=== PATIENT | male | born 1965 | race Caucasian/White ===

== ENCOUNTER 2022-09-11 18:56 | Emergency (ER) | payer SELFPAY ==
[2022-09-11 19:07] VITALS: BP 127/72; PULSE 89; RESP 16; TEMP 37.9; O2SAT 99
--- NOTE | 2022-09-11 19:40 | ED.ABDPAIN ---
HPI - Abdominal Pain General Chief Complaint: Abdominal Pain Stated Complaint: colitis flare up Source: patient Mode of arrival: ambulatory Limitations: no limitations History of Present Illness HPI narrative: Patient presents for evaluation of abdominal pain. Symptom onset today while eating some fast food. Pain is been constant with interval improvement and worsening. Pain is generalized, rated 9/10 in severity. He has a history of colitis and this feels similar. He had a bowel movement earlier today which was solid and small. He had mucus in the stool but no blood. No fever or chills. He has experienced some nausea without vomiting. No history of abdominal surgeries. He indicates he was diagnosed with colitis about 5 years ago. He has had some intermittent flares since that time. He usually consumes alcohol few times per week, 2-3 beers at a time. The past 4 days he has consumed more ETOH than normal. No hx of colonoscopy. Related Data Allergies Allergy/AdvReac Type Severity Reaction Status Date / Time MEPERIDINE HCL Allergy Intermediate VOMITING Uncoded 08/09/16 13:09 Review of Systems Review of Systems: CONSTITUTIONAL: Denies fever, chills, or sweats. EYES: Denies visual changes, redness, or discharge. ENT: Denies rhinorrhea, congestion, sore throat, or otalgia. CARDIOVASCULAR: Denies chest pain, palpitations, or edema. RESPIRATORY: Denies cough or dyspnea. GASTROINTESTINAL: Reports abdominal pain, nausea, vomiting and mucous in the stool. Denies blood in the stool. GENITOURINARY: Denies dysuria or hematuria. SKIN: Denies rash or itching. MUSCULOSKELETAL: Denies back pain, joint pain, or myalgia. NEUROLOGIC: Denies headache, numbness, dizziness, or weakness. PSYCHIATRIC: Denies anxiety or depression. [facility] Past Medical History Medical History Colitis Surgical History Surgical History No pertinent past surgical history Family History Family History Mother Family history non-contributory Social History Social History Alcohol intake: current Alcohol use details: 2-3 beers a few days per week Substance use: current Substance use type: marijuana Living arrangements: alone Gender identity (if verbalized by the patient): Male Sexual Orientation (if Verbalized by the Patient): Straight or Heterosexual Spiritual care concerns: No Exam Narrative: GENERAL: Well-appearing, well-nourished, and in no acute distress. HEAD: Normocephalic, atraumatic. EYES: PERRLA and EOMI. ENT: Nares clear, no rhinorrhea or epistaxis. Mucous membranes moist. Oropharynx without tonsillar hypertrophy exudate or other lesions. Bilateral TMs pearly marie nonbulging NECK: Supple. No adenopathy or masses. No carotid bruits or JVD CHEST: Clear to auscultation. No respiratory distress. No wheezes rales or rhonchi HEART: Regular rate and rhythm. No murmur heard. Normal peripheral pulses. ABDOMEN: Soft, diffuse abdominal tenderness without rebound or guarding. EXTREMITIES: Normal range of motion. No edema. SKIN: Warm, dry, no rash. NEURO: No focal deficits. Alert and oriented x3. PSYCH: Normal mood and affect. Course Course Emergency Course: This is a 57-year-old male who presented for evaluation of abdominal pain that is consistent with his previous bouts of colitis. I recommended he go to the emergency department for further evaluation including labs and CT imaging. He declined. He indicates he does not have insurance at the present time is concerned about finances. I discussed options related to this and he adamantly declined go to the emergency department. I advised that he follow a clear liquid diet and not consume alcohol. We can treat him for colitis with Flag
== END 2022-09-11 19:46 | disposition left against medical advice (07) ==
PROVIDERS: Emergency Provider Nurse Practitioner
DX: R10.84 Generalized abdominal pain (principal); F12.90 Cannabis use, unspecified, uncomplicated
CPT/HCPCS: 99203; G0463

== ENCOUNTER 2022-09-12 13:51 | Inpatient (IN) | payer SELFPAY ==
--- NOTE | ~2022-09-12 | XR_ITS ---
EXAMINATION: XR abdomen/kub 1V INDICATION: Acute onset abdominal pain TECHNIQUE: Supine views of the abdomen were obtained on 2 radiographs. COMPARISON: 09/14/2022 FINDINGS: There are no dilated loops of bowel. The bowel gas pattern is normal. There is moderate lum bar spondylosis. No free intraperitoneal gas is identified. IMPRESSION: 1. No radiographic correlate for the patient's symptoms. Reviewed, dictated and finalized at location B.
--- NOTE | ~2022-09-12 | XR_ITS ---
EXAMINATION: XR abdomen/kub 1V DATE: 09/14/2022 12:36 INDICATION: Sigmoid colon perforation. Abdominal pain. TECHNIQUE: A supine view of the abdomen on 2 radiographs was obtained. COMPARISON: CT abdomen and pelvis 09/12/2022 FINDINGS: There are no dilated loops of bowel. There is a paucity of stool in the colon. IMPRESSION: 1. Normal bowel gas pattern. Reviewed, dictated and finalized at location A.
--- NOTE | ~2022-09-12 | CT_ITS ---
EXAMINATION: CT abdomen pelvis wo con DATE: 09/19/2022 12:34 INDICATION: Perisigmoid abscess. TECHNIQUE: Computed tomography (CT) of the abdomen and pelvis was performed without intravenous contr ast. Automated exposure control and iterative reconstruction technique were employed. The dose-length product was 349.35 mGy-cm. COMPARISON: CT abdomen and pelvis 09/14/2022, 09/12/22, 08/09/16 FINDINGS: The visualized portions of the lung bases demonstrate mild atelectasis. There are small ple ural effusions. The heart size is normal. No pericardial effusion. There is a small sliding hiatal he rnia. The liver, spleen, gallbladder, pancreas, adrenal glands, and kidneys are normal. Aortic athero sclerosis is noted. The prostate is mildly enlarged. There are bilateral inguinal hernias containing fat. There are scattered diverticula in the colon. There is wall thickening of the sigmoid colon with adjacent fat stranding. There is free intraperitoneal gas adjacent to the sigmoid colon and scattere d in the peritoneum including in the anterior peritoneum and under the diaphragm. There is a percutan eous drain adjacent to the sigmoid colon without residual drainable fluid. The appendiceal diameter i s 11 mm. The appendix sits near the percutaneous drain in an area involved by the perisigmoid inflamm ation. There is trace pelvic ascites. There are no pathologically enlarged lymph nodes. There is andrei re lower lumbar spondylosis. IMPRESSION: 1. Acute sigmoid diverticulitis with perforation and percutaneous drain in expected position. No resi dual drainable abscess. 2. Acute appendicitis. Note that the appendix is surrounded by the perisigmoid inflammation. Reviewed, dictated and finalized at location A. IMPRESSION: 1. Acute sigmoid diverticulitis with perforation and percutaneous drain in expe cted position. No residual drainable abscess. 2. Acute appendicitis. Note that the appendix is surrounded by the perisigmoid inflammation.
--- NOTE | ~2022-09-12 | CT_ITS ---
EXAMINATION: CT abdomen pelvis w con DATE: 09/12/2022 14:47 INDICATION: lower ab pain TECHNIQUE: Computed tomography (CT) of the abdomen and pelvis was performed with 100 mL Omnipaque-350 intravenous contrast. Automated exposure control and iterative reconstruction technique were employe d. The dose-length product was 295.62 mGy-cm. COMPARISON: 08/09/2016. FINDINGS: Lower thorax: Unremarkable Liver: Diffuse fatty infiltration. Biliary/Gallbladder: Gallbladder is normal. No bile duct dilation. Pancreas: No mass or duct dilation. Spleen: Normal. Adrenals:No mass. Kidneys: No mass, stone, or hydronephrosis. GI tract: Small hiatal hernia. Mild distal esophageal and gastric wall edema. No small or large bowel dilation. Fairly long segment soft tissue density wall thickening in the sigmoid with a focal area o f pericolic inflammatory change and punctate extraluminal gas bubbles. No focal fluid collection is d efinitively identified. Borderline dilated appendix, without surrounding inflammatory change and stab le size since the prior examination. Scattered colonic diverticuli. Small and large bowel submucosal fatty infiltration. Mesentery/Peritoneum: No ascites, mass, or free air. Retroperitoneum: No mass. Atherosclerotic abdominal aortic and/or arterial calcifications. Pelvis: Pelvic organs are within normal limits. Soft Tissues: Uncomplicated umbilical and bilateral inguinal fat-containing hernias. Bones: No acute osseous finding. IMPRESSION: Sigmoid colitis with adjacent localized free air indicating microperforation, source may be diverticu litis or other infectious, inflammatory or ischemic colitis. Reviewed, dictated and finalized at location K. IMPRESSION: Sigmoid colitis with adjacent localized free air indicating microperforation, s ource may be diverticulitis or other infectious, inflammatory or ischemic colit is.
--- NOTE | ~2022-09-12 | CT_ITS ---
EXAMINATION: CT abdomen pelvis w con DATE: 09/14/2022 20:08 INDICATION: Diverticulitis with new onset right lower quadrant abdominal pain. TECHNIQUE: Computed tomography (CT) of the abdomen and pelvis was performed with 100 mL Omnipaque-350 intravenous contrast. Automated exposure control and iterative reconstruction technique were employe d. The dose-length product was 411.37 mGy-cm. COMPARISON: 09/12/2022 FINDINGS: Very small bilateral pleural effusions with associated dependent compressive atelectasis in the lower lobes. Heart size is normal. No pericardial effusion. Small sliding-type hiatal hernia and/or wall t hickening in the distal esophagus. Mild focal hepatic steatosis at the ligamentum teres. Gallbladder, spleen, pancreas, bilateral adrenal glands and kidneys are normal. Again seen is moderate scattered colonic diverticulosis with focal wall thickening at the mid sigmoid colon consistent with diverticul itis. Significant increase in the amount of free intraperitoneal gas now extending into the upper abd omen. There is a new 4.7 x 2.3 x 3.0 cm fluid collection loculated in the mesentery along side the in flamed diverticulum but which remains without clearly defined organized peripheral wall. Small bowel is unremarkable. Bladder is partially decompressed. Prostatomegaly. Small fat-containing bilateral in guinal hernias. No pathologically enlarged abdominal or pelvic lymphadenopathy. Mild lumbar levocurva ture with moderate to severe lower lumbar spondylosis. Transitional L5 segment is sacralized on the r ight. IMPRESSION: 1. Sigmoid diverticulitis with progression of associated bowel perforation now with significantly inc reased free intraperitoneal gas extending into the upper abdomen and a 4.7 x 2.3 x 3.0 cm loculated f luid collection in the right lower quadrant which remains without a clearly defined organized periphe ral wall. Reviewed, dictated and finalized at location A. IMPRESSION: 1. Sigmoid diverticulitis with progression of associated bowel perforation now with significantly increased free intraperitoneal gas extending into the upper abdomen and a 4.7 x 2.3 x 3.0 cm loculated fluid collection in the right lower quadrant which remains without a clearly defined organized peripheral wall.
--- NOTE | ~2022-09-12 | CT_ITS ---
EXAMINATION: CT guide absc cath placement DATE: 09/17/2022 14:24 INDICATION: Diverticular abdominal abscess. TECHNIQUE: The procedure including the risks, benefits, and alternatives was discussed with the patie nt. Risks discussed included bleeding and infection. The patient understood the risks and benefits an d agreed to proceed. The skin overlying the abdomen was prepped and draped in usual sterile fashion. Anesthetic was administered with 1% lidocaine subcutaneously. An 18 gauge trochar needle was inserte d into the perisigmoid abscess with CT guidance. The needle was exchanged over a wire for 6 Yi an d 8 Yi dilators and then for an 8.5 Yi pigtail catheter. The catheter was stitched to the ski n, and a sterile dressing was applied. The mA was adjusted according to patient size. Iterative recon struction technique was employed. The dose-length product was 198.96 mGy-cm. There were no immediate complications. FINDINGS: CT images demonstrate the catheter within the perisigmoid abscess. 9 mL fluid was aspirated for testing. IMPRESSION: 1. Successful CT-guided perisigmoid abscess drainage. 2. 9 mL opaque, vera fluid was sent for aerobic and anaerobic cultures. Reviewed, dictated and finalized at location A.
[2022-09-12 13:57] VITALS: BP 144/77; PULSE 76; RESP 18; TEMP 36.6; O2SAT 99
[2022-09-12 14:21] LABS: Basophils Percent Auto 0.3 % (0.2-1.2); Eosinophils Absolute Auto 0.2 K/mm3 (0-0.3); Eosinophils Percent Auto 1.4 % (0-4.4); Hematocrit 45.5 % (42.0-52.0); Hemoglobin 15.6 g/dL (14.0-18.0); Immature Granulocyte Absolute 0.03 K/mm3 (0.00-0.031); Immature Granulocyte Percent A 0.3 % (0-0.5); Lymphocytes Absolute Auto 1.37 K/mm3 (0.9-3.2); Lymphocytes Percent Auto 12.7 % (18.3-44.2); Mean Corpuscular HGB Conc 34.3 g/dl (32-36); Mean Corpuscular Hemoglobin 33.1 pg (26-34); Mean Corpuscular Volume 96.6 fl (80-100); Mean Platelet Volume 9.5 fl (7.4-10.4); Monocytes Absolute Auto 0.5 K/mm3 (0.1-0.6); Monocytes Percent Auto 4.2 % (2.6-8.5); Neutrophils Absolute Auto 8.7 K/mm3 (1.3-6.7); Neutrophils Percent Auto 81.1 % (45.5-73.1); Platelet Count Result 195 k/mm3 (150-375); Red Blood Count 4.71 M/mm3 (4.6-6.20); Red Cell Distribution Width 12.4 % (11.5-14.5); White Blood Count 10.8 K/mm3 (4.5-10.0)
[2022-09-12 14:34] LABS: Alanine Aminotransferase 33 U/L (6-50); Albumin Level 4.3 g/dL (3.5-5.1); Alkaline Phosphatase 78 U/L (38-126); Anion Gap 8 mmol/L (8-16); Aspartate Amino Transferase 34 U/L (17-59); Bilirubin,Total 2.5 mg/dL (0.2-1.3); Blood Urea Nitrogen 12 mg/dL (9-20); Calcium 8.9 mg/dL (8.4-10.2); Carbon Dioxide 28 mmol/L (22-30); Chloride 100 mmol/L (98-107); Estimated CRCL calculation 68 ml/min; Estimated Glomerular Filt Rate > 60; Glucose 90 mg/dL (65-110); Lipase 28 U/L (23-300); Potassium 4.2 mmol/L (3.4-5.0); Sodium 136 mmol/L (137-145)
[2022-09-12 14:35] LABS: Bacteria Urine None Seen /hpf; Hyaline Casts Urine Present /lpf; Non Pathogenic Casts 0-2; RBC Urine 0-2 /hpf (0-2); Squamous Epithelial Cell Urine None seen /hpf (Few); WBC Urine 0-5 /hpf
[2022-09-12 14:42] LABS: Appearance Urine Clear (Clear); Bilirubin Urine 2+ (Negative); Blood Urine Trace-intact (Negative); Color Urine Yellow (Yellow); Glucose Urine UA Negative (Negative); Ketones Urine 3+ mg/dL (Negative); Leukocyte Esterase Ur Negative LEU/UL (Negative); Nitrate Urine Negative (Negative); Protein Urine 2+ mg/dL (Negative); Specific Grav Ur >= 1.030 (1.001-1.035); Urobilinogen Urine >=8.0 mg/dL (<2.0)
[2022-09-12 14:45] LABS: Add Urine Microscopic? YES
[2022-09-12 15:00] VITALS: BP 127/79; PULSE 87; RESP 16; O2SAT 97
--- NOTE | 2022-09-12 15:13 | ED.ABDPAIN ---
HPI - Abdominal Pain General Chief Complaint: Abdominal Pain Stated Complaint: abdominal pain Time Seen by Provider: 09/12/22 14:03 History of Present Illness HPI narrative: 37-year-old male presented to ED for evaluation of worsening lower abdominal pain. Patient states the pain started yesterday and he presented to the urgent care for evaluation. Patient was started on Cipro meloxicam and Zofran in urgent care. Patient states the pain continues to worsen so patient presented to the ED for further evaluation. Patient denies any prior surgical history. Related Data Allergies Allergy/AdvReac Type Severity Reaction Status Date / Time meperidine AdvReac Intermediate Vomiting Verified 09/12/22 18:08 Review of Systems Review of Systems: All systems reviewed & are unremarkable except as noted in HPI and below PMFSH Past Medical History Medical History (Updated 09/12/22 @ 21:47 by Jos Marsh MD) Colitis Surgical History Surgical History (Updated 09/12/22 @ 19:24 by Mariola Piedra PA-C) History of orthopedic surgery Repair of left elbow and left wrist fractures. Family History Family History Mother Family history non-contributory Social History Social History (Updated 09/12/22 @ 19:25 by Mariola Piedra PA-C) Social History: Code status: Full code. Smoking status: Never smoker Additional smoking assessment comments: only smokes marijuana 5 times per month Alcohol intake: current Drinks per week: 10 Alcohol use details: 2-3 beers a few days per week while golfing. Substance use: current Substance use type: marijuana Last use: 09/06/22 Lack of Transportation: No Lack of Food: Never True Current Housing: I Have Housing Concerned About Future Housing: No Difficulty Paying Gas/Electric Bills: No Difficulty Paying for Meds: No Currently Unemployed: No Education: Don't Know Difficulty w/ Childcare or Family Care: No Living arrangements: alone Spiritual care concerns: No Exam Narrative: APPEARANCE: uncomfortable appearing HEAD: normocephalic, atraumatic. EYES: PERRLA/EOMI, conjunctivae clear. NOSE: Normal no drainage NECK: Supple. No adenopathy, no masses. RESPIRATORY: Airway patent, respirations nonlabored. Clear to auscultation bilaterally, no rales, rhonchi, wheezing. CARDIOVASCULAR: Regular rate and rhythm without murmurs rubs or gallops. ABDOMINAL: bilateral lower abdominal pain MUSCULOSKELETAL: Moves all extremities. Strength/ROM intact, No edema, No calf tenderness. NEURO: Alert. Cranial nerves II through XII intact. Good gait. Good coordination SKIN: Warm, dry. Normal Color PSYCHIATRIC: Normal affect/mood. Course Course Emergency Course: 57-year-old male presented to ED for evaluation of abdominal pain. CT scan was ordered to evaluate for colitis/diverticulitis. CT scan did show evidence of microperforation which may be secondary to perforated diverticulitis. Patient was afebrile but does have a leukocytosis of 10.5. Blood cultures were ordered and patient was started on Zosyn. Surgery was consulted. GI was also consulted. Patient was admitted to the hospitalist. Patient and family were updated the results of the CT scan showing microperforation. They were updated on the plan for hospitalization. All questions or concerns were addressed. Vital Signs Vital signs: Vital Signs Temperature 97.9 F 09/12/22 13:57 Pulse Rate 76 09/12/22 13:57 Respiratory Rate 18 09/12/22 13:57 Blood Pressure 144/77 H 09/12/22 13:57 Pulse Oximetry 99 09/12/22 13:57 Oxygen Delivery Room Air 09/12/22 13:57 Temperature 97.9 F 09/12/22 20:55 Pulse Rate 71 09/12/22 20:55 Respiratory Rate 18 09/12/22 20:55 Blood Pressure 123/71 09/12/22 20:55 Pulse Oximetry 96 09/12/22 20:55 Oxygen Delivery Room Air 09/12/22 13:57 MDM - Abdominal Pain Differential Diagn
[2022-09-12] MEDS: SODIUM CHLORIDE 0.9% IV 1,000 ML 999 ML IV CONT (15:23)
[2022-09-12] MEDS: HYDROmorphone HCL INJ (*CRX) 1 MG/ML SYR 0.5 MG IV PUSH ×3 (15:23→17:45)
[2022-09-12] MEDS: PIPERACILLN/TAZ 3.375GM/NS50ML 3.375 GM/50 ML BAG IVPB ×2 (15:52→20:49)
--- NOTE | 2022-09-12 15:55 | PM.CNGS ---
Assessment and Plan Assessment and plan (1) Colitis: Code(s): K52.9 - Noninfective gastroenteritis and colitis, unspecified Status: Acute Assessment and Plan: CT evidence of sigmoid colitis versus diverticulitis with microperforation. There is scattered diverticuli on CT. He does have a history of colitis treated with antibiotics in 2017, but no previous history of diverticulitis. We would recommend to initially treat this conservatively with broad-spectrum IV antibiotics, bowel rest, IV fluids, and analgesics. Also recommend GI consultation. One dose of IV Zosyn in the ER given, agree with continuing. Will keep NPO except ice chips. Discussed with the ED physician adjusting his pain medication as he has not had much relief with the recent dose he was given of Dilaudid. Will continue to monitor with serial abdominal exams and labs. Repeat labs again tomorrow morning. Plan I have discussed the patient's case and plan of care with Dr. King. Thank you for allowing us to see the patient in consultation and we will continue to follow along with you. History of Present Illness Consult details Consult date: 09/12/22 Reason for consult: other (Sigmoid colitis versus diverticulitis with microperforation) Requesting physician: Jos Marsh MD Narrative: This is a 57-year-old man who presented to the ER today with complaints of left lower quadrant abdominal pain. He reports having a sudden onset of left lower quadrant abdominal pain yesterday after eating lunch. His pain initially took him to the urgent care yesterday afternoon. At that time, he had a reported fever of 101? F. they recommended he go to the ER for evaluation, but he refused initially and they prescribed oral antibiotics. He reports picking up 1 of 3 antibiotics, which was cephalexin, that he started taking last night. His abdominal pain persisted without any improvement overnight. Therefore, he came into the ER for further evaluation. Labs showed a white blood cell count of 10,800. CT scan of abdomen and pelvis showed a fairly long segment of wall thickening in the sigmoid colon with a focal area of pericolonic inflammatory change and punctate extraluminal gas, consistent with sigmoid colitis with microperforation. Could be related to diverticulitis or infectious/inflammatory/ischemic colitis. Our service was consulted by the ED physician. He is now seen in the ER. He is still having a fair amount of abdominal pain, but reports no relief with the IV Dilaudid he received. No nausea or vomiting. He reports having a similar episode of abdominal pain in 2017 that brought him into the [place] [facility]. He was treated for colitis with oral antibiotics. He denies any history of diverticulitis. He has never had a colonoscopy. No previous abdominal surgeries. Review of Systems Review of Systems: All systems reviewed & are unremarkable except as noted in HPI and below PMFSH Past Medical History Medical History Colitis Surgical History Surgical History No pertinent past surgical history Family History Family History Mother Family history non-contributory Social History Social History Alcohol intake: current Alcohol use details: 2-3 beers a few days per week Substance use: current Substance use type: marijuana Living arrangements: alone Gender identity (if verbalized by the patient): Male Sexual Orientation (if Verbalized by the Patient): Straight or Heterosexual Spiritual care concerns: No Meds Home Medications and Allergies Home Medications Medication Instructions Recorded Confirmed Type ciprofloxacin HCl 500 mg tablet 500 mg PO Q12H #20 tabs 09/11/22 Rx (Cipro) metronidazole 500 mg tablet 500 mg PO Q8H #30 tabs
[2022-09-12 16:00] VITALS: BP 130/75; PULSE 71; RESP 16; O2SAT 98
[2022-09-12 17:00] VITALS: BP 128/74; PULSE 77; RESP 16; O2SAT 100
[2022-09-12 17:38] VITALS: BMI 25.0
[2022-09-12] MEDS: SODIUM CHLORIDE 0.9% IV 1,000 ML 100 ML IV CONT (17:45)
[2022-09-12] MEDS: ONDANSETRON INJ 4 MG/2 ML VIAL IV PUSH (17:45)
--- NOTE | 2022-09-12 17:55 | ADMGEN ---
This patient, Da Spencer, was admitted to [facility] Surg Room 329-01. Patient/family oriented to hospital policies and general routines including ID bracelet, bed and alarms, visiting hours, pain management, procedures, bathroom and other care routines, personal items, smoking policy, room service/diet, and visiting hours. Information on how to activate the Rapid Response Team has been discussed. Patient/Family are encouraged to report perceived risks to care and to ask questions if they do not understand what they are told or what they should do.
--- NOTE | 2022-09-12 19:12 | PM.IMHP ---
H&P: HPI History of Present Illness Date/Time: 09/12/22 18:15 Chief Complaint: Abdominal pain. Narrative: This is a pleasant 57-year-old male with history of infectious colitis and occasional symptoms of GERD and dysphagia who presented to the emergency department via private vehicle from home for evaluation of abdominal pain. The patient provides the following history. Yesterday afternoon after eating fast food for lunch he developed discomfort throughout the lower abdomen which is similar to symptoms he had felt before when he had infectious colitis about 5 years ago. Since that time he has had several similar episodes though he has never had a colonoscopy to investigate. The pain has been nonstop since the outset and he describes an aching pain which does become quite intense at times. He has not had any food since yesterday afternoon and he cannot say he has noticed any significant aggravating or alleviating factors. His pain got so severe that he developed nausea and had several episodes of emesis. This morning he had a small bowel movement which was really unremarkable and contained no blood or mucus. He was seen at urgent care yesterday evening at which time he had a low-grade temperature. He was encouraged go to the emergency department for CT imaging however he declined going to the ED as he felt this was likely his colitis. He was given prescriptions for metronidazole and ciprofloxacin as well as Zofran. He was told to return with any concerns or worsening symptoms. Today he has not felt any better and he came back in for evaluation. Vital signs were stable on arrival to the ED. pertinent labs include a WBC count of 10.8, sodium 136, total bilirubin 2.5, lipase 28. Urine was concentrated with 2+ proteins and 3+ ketones. CT showed sigmoid colitis with adjacent localized free air indicating micro perforation. He has been started on Zosyn and is being admitted to the floor for further treatment and surgery consultation. At the time my evaluation he is feeling a bit better after receiving an increase in his Dilaudid dose to 1 mg. Review of Systems Review of Systems: Twelve systems were reviewed and are negative except for as per HPI. [facility] Past Medical History Medical History (Updated 09/12/22 @ 19:27 by Mariola Piedra PA-C) Colitis Surgical History Surgical History (Updated 09/12/22 @ 19:24 by Mariola Piedra PA-C) History of orthopedic surgery Repair of left elbow and left wrist fractures. Family History Family History Mother Family history non-contributory Social History Social History (Updated 09/12/22 @ 19:25 by Mariola Piedra PA-C) Social History: Code status: Full code. Smoking status: Never smoker Additional smoking assessment comments: only smokes marijuana 5 times per month Alcohol intake: current Drinks per week: 10 Alcohol use details: 2-3 beers a few days per week while golfing. Substance use: current Substance use type: marijuana Last use: 09/06/22 Lack of Transportation: No Lack of Food: Never True Current Housing: I Have Housing Concerned About Future Housing: No Difficulty Paying Gas/Electric Bills: No Difficulty Paying for Meds: No Currently Unemployed: No Education: Don't Know Difficulty w/ Childcare or Family Care: No Living arrangements: alone Spiritual care concerns: No Meds Home Medications and Allergies Home Medications Medication Instructions Recorded Confirmed Type ciprofloxacin HCl 500 mg tablet 500 mg PO Q12H #20 tabs 09/11/22 09/12/22 Rx (Cipro) Allergies Allergy/AdvReac Type Severity Reaction Status Date / Time meperidine AdvReac Intermediate Vomiting Verified 09/12/22 18:08 Vital Signs Vital Signs - 24 hr 09/12/22 13:57 09/12/22 16:00 09/12/22 15:00 Temperature 97.9 F Pulse Rate 76 71 87 Respiratory Rate 18 16 16 Blood Pressure 144/77
[2022-09-12] MEDS: HYDROmorphone HCL INJ (*CRX) 1 MG/ML SYR IV PUSH (20:49)
[2022-09-12 20:55] VITALS: BP 123/71; PULSE 71; RESP 18; TEMP 36.6; O2SAT 96
[2022-09-13] MEDS: HYDROmorphone HCL INJ (*CRX) 1 MG/ML SYR IV PUSH ×5 (01:16→15:12)
[2022-09-13] MEDS: PIPERACILLN/TAZ 3.375GM/NS50ML 3.375 GM/50 ML BAG IVPB ×4 (01:19→20:10)
[2022-09-13] MEDS: SODIUM CHLORIDE 0.9% IV 1,000 ML 100 ML IV CONT ×2 (05:09→15:12)
[2022-09-13 06:00] VITALS: BP 114/68; PULSE 78; RESP 16; TEMP 36.1; O2SAT 99
[2022-09-13 06:56] LABS: Basophils Percent Auto 0.6 % (0.2-1.2); Eosinophils Absolute Auto 0.2 K/mm3 (0-0.3); Eosinophils Percent Auto 3.2 % (0-4.4); Hematocrit 40.1 % (42.0-52.0); Hemoglobin 13.4 g/dL (14.0-18.0); Immature Granulocyte Absolute 0.03 K/mm3 (0.00-0.031); Immature Granulocyte Percent A 0.5 % (0-0.5); Lymphocytes Absolute Auto 0.87 K/mm3 (0.9-3.2); Lymphocytes Percent Auto 13.9 % (18.3-44.2); Mean Corpuscular HGB Conc 33.4 g/dl (32-36); Mean Corpuscular Hemoglobin 33.3 pg (26-34); Mean Corpuscular Volume 99.5 fl (80-100); Mean Platelet Volume 9.4 fl (7.4-10.4); Monocytes Absolute Auto 0.3 K/mm3 (0.1-0.6); Monocytes Percent Auto 5.4 % (2.6-8.5); Neutrophils Absolute Auto 4.8 K/mm3 (1.3-6.7); Neutrophils Percent Auto 76.4 % (45.5-73.1); Platelet Count Result 142 k/mm3 (150-375); Red Blood Count 4.03 M/mm3 (4.6-6.20); Red Cell Distribution Width 12.6 % (11.5-14.5); White Blood Count 6.3 K/mm3 (4.5-10.0)
[2022-09-13 07:08] LABS: Lactic Acid Reflex 0.6 mmol/L (0.7-2.0)
[2022-09-13 07:11] LABS: Anion Gap 7 mmol/L (8-16); Blood Urea Nitrogen 10 mg/dL (9-20); Calcium 8.1 mg/dL (8.4-10.2); Carbon Dioxide 25 mmol/L (22-30); Chloride 103 mmol/L (98-107); Estimated CRCL calculation 77 ml/min; Estimated Glomerular Filt Rate > 60; Glucose 72 mg/dL (65-110); Potassium 4.1 mmol/L (3.4-5.0); Sodium 135 mmol/L (137-145)
--- NOTE | 2022-09-13 07:13 | WPDGICN ---
Assessment and Plan Assessment and plan (1) Diverticulitis: Code(s): K57.92 - Diverticulitis of intestine, part unspecified, without perforation or abscess without bleeding Status: Acute Assessment and Plan: CT scan which I reviewed reveals: Sigmoid colitis with adjacent localized free air indicating microperforation, source may be diverticulitis or other infectious, inflammatory or ischemic colitis. Explain to the patient that in most cases this resolved with antibiotics and bowel rest. I told that occasionally surgery is required but is best to avoid it in the acute phase. I also told that he would need a colonoscopy a few weeks to assess his colon and rule other pathology. (2) Abnormal CT scan, gastrointestinal tract: Code(s): R93.3 - Abnormal findings on diagnostic imaging of other parts of digestive tract Status: Acute Assessment and Plan: a CT scan done here in our emergency room in 2016 revealed thickening of the transverse colon descending colon sigmoid colon suggestive of ulcerative colitis or infectious colitis. He was apparently sent home on antibiotics but there was no follow-up care. He states that he has not had problems in between these 2 episodes. Plan I will let him try clear liquid diet today. He understands that we are trying to rest his digestive tract to help improve pain and healing. GI Consult Note Consult date/time: 09/13/22 07:13 HPI: Da Spencer is a 57 year old male who presented to the emergency room yesterday with acute abdominal pain. He had been to urgent care center and had been sent home with antibiotics that he had not gotten started on yet. The pain became worse and he subsequently came here. He was found on CT scan have a micro perforation in the area of the sigmoid colon suggestive of diverticulitis. On Saturday had gone to an urgent care center with a fever of 101. There he was given prescriptions for 3 medications. He had only picked up 1 and had just started taking the 1st dose but then came here yesterday because of increasing pain. The pain is across the lower abdomen. It is constant. The pain medication lasts for almost 3 hours but when it wears off his pain is as severe today is a was yesterday. He has not had unusual bowel movements. He has not seen blood in his stools. He was nauseated yesterday and had some water brash in his mouth but did not vomit. He in fact feels hungry today. He has not had colonoscopy in the past. I saw however that he had a CT scan about 5 years ago when he presented to the emergency room with lower abdominal pain and he was found to have colitis involving the transverse and descending colon. Review of Systems Review of Systems: All systems reviewed & are unremarkable except as noted in HPI and below PMFSH Past Medical History Medical History Colitis Surgical History Surgical History (Updated 09/12/22 @ 19:24 by Mariola Piedra PA-C) History of orthopedic surgery Repair of left elbow and left wrist fractures. Family History Family History Mother Family history non-contributory Social History Social History Social History: Code status: Full code. Smoking status: Never smoker Additional smoking assessment comments: only smokes marijuana 5 times per month Alcohol intake: current Drinks per week: 10 Alcohol use details: 2-3 beers a few days per week while golfing. Substance use: current Substance use type: marijuana Last use: 09/06/22 Lack of Transportation: No Lack of Food: Never True Current Housing: I Have Housing Concerned About Future Housing: No Difficulty Paying Gas/Electric Bills: No Difficulty Paying for Meds: No Currently Unemployed: No Education: Don't Know Difficulty w/ Childcare or Fa
[2022-09-13 09:49] VITALS: O2SAT 94
--- NOTE | 2022-09-13 11:50 | PM.IMPN ---
Progress Note: A&P Assessment and Plan (1) Colitis: Code(s): K52.9 - Noninfective gastroenteritis and colitis, unspecified Status: Acute Assessment and Plan: diverticulitis vs colitis with microperf, cont IV abx, LA 0.6 appreciate surgery consult conservative management ADAT (2) Dehydration: Code(s): E86.0 - Dehydration Status: Acute Assessment and Plan: encourage po fluids Plan Full Code DVT prophylaxis with SCDs Subjective Date/time seen: 09/13/22 11:50 Interval history: 57-year-old male with history of GERD presenting with abdominal pain and found to have diverticulitis with micro perforation noted. No overnight events noted. No chest pain or shortness of breath. No nausea, vomiting or diarrhea. No fevers or chills. Still with abdominal pain, a little better than when he came in. Review of Systems Review of Systems: 12 point review of systems was assessed and was negative except as noted in the HPI Exam Narrative: General: No acute distress, alert and oriented per baseline HEENT: Atraumatic, normocephalic, mucous membranes moist CV: Regular rate and rhythm, S1, S2 Lungs: Clear to auscultation bilaterally, no rales or crackles noted, no wheezes, good air entry Abdomen: Soft, TTP diffusely, nondistended, no guarding Extremities: Normal to inspection Skin: No rashes noted, no lesions or wounds seen Psych: Euthymic, normal affect Objective Data Vital Signs Vital Signs: Vital Signs - 24 hr 09/12/22 13:57 09/12/22 16:00 09/12/22 15:00 Temperature 97.9 F Pulse Rate 76 71 87 Respiratory Rate 18 16 16 Blood Pressure 144/77 H 130/75 127/79 Pulse Oximetry 99 98 97 Oxygen Delivery Room Air 09/12/22 17:00 09/12/22 20:55 09/12/22 20:00 Temperature 97.9 F Pulse Rate 77 71 Respiratory Rate 16 18 Blood Pressure 128/74 123/71 Pulse Oximetry 100 96 Oxygen Delivery Room Air 09/13/22 06:00 09/13/22 08:00 09/13/22 09:49 Temperature 96.9 F L Pulse Rate 78 Respiratory Rate 16 Blood Pressure 114/68 Pulse Oximetry 99 94 Oxygen Delivery Room Air Room Air Intake/Output Intake/Output: Intake & Output 09/10/22 09/11/22 09/12/22 09/13/22 23:59 23:59 23:59 23:59 Intake Total 1100 1050 Output Total 200 Balance 1100 850 Meds/Results Medications: Active Medications Generic Name Dose Route Start Last Admin Trade Name Freq PRN Reason Stop Dose Admin Hydromorphone HCl 0.5 mg 09/12/22 19:31 Hydromorphone Hcl Inj (*Crx) 1 Mg/Ml Syr IV PUSH Q3H PRN Pain Rated 4-6 Hydromorphone HCl 1 mg 09/12/22 19:31 09/13/22 08:42 Hydromorphone Hcl Inj (*Crx) 1 Mg/Ml Syr IV PUSH 1 mg Q3H PRN Administration Pain Rated 7-10 Sodium Chloride 1,000 mls @ 100 mls/hr 09/12/22 16:10 09/13/22 05:09 Normal Saline Iv IV CONT 100 mls/hr .Q10H CARL Administration Piperacillin/Tazobactam/Dextrose 3.375 gm in 50 mls @ 100 mls/hr 09/12/22 21:00 09/13/22 08:44 Zosyn 3.375 Gm/Ns 50 Ml IVPB 100 mls/hr Q6H CARL Administration Ondansetron HCl 4 mg 09/12/22 16:10 09/12/22 17:45 Ondansetron Inj 4 Mg/2 Ml Vial IV PUSH 4 mg Q4H PRN Administration Nausea Radiology Results: ITS Impressions Abdomen/Pelvis CT 09/12/22 14:53 IMPRESSION: Sigmoid colitis with adjacent localized free air indicating microperforation, source may be diverticulitis or other infectious, inflammatory or ischemic colitis. Labs Labs: Laboratory Results - last 24 hr 09/12/22 09/12/22 09/13/22 14:08 14:11 06:48 WBC 10.8 H 6.3 RBC 4.71 4.03 L Hgb 15.6 13.4 L Hct 45.5 40.1 L MCV 96.6 99.5 MCH 33.1 33.3 MCHC 34.3 33.4 RDW 12.4 12.6 Plt Count 195 142 L MPV 9.5 9.4 Immature Gran % (Auto) 0.3 0.5 Neut % (Auto) 81.1 H 76.4 H Lymph % (Auto) 12.7 L 13.9 L [place] % (Auto) 4.2 5.4 Eos % (Auto) 1.4 3.2 Baso % (Auto) 0.3 0.6 Lymp
--- NOTE | 2022-09-13 14:03 | PM.PNGS ---
Progress Note: A&P Assessment and Plan (1) Colitis: Code(s): K52.9 - Noninfective gastroenteritis and colitis, unspecified Status: Acute Assessment and Plan: Sigmoid colitis versus diverticulitis with microperforation. WBC normalized. Still having abdominal pain, but slightly improved. Continue IV antibiotics. Clear liquids today. Will add ketorolac to try and improve pain control, continue Dilaudid IV PRN. Repeat labs tomorrow. Plan I have discussed the patient's case and plan of care with Dr. King. Subjective Subjective Date/Time Seen: 09/13/22 12:03 Patient reports: no new complaints, flatus, no bowel movement and afebrile Interval history: Patient still having LLQ abdominal pain. He feels it has improved slightly. He denies any nausea or vomiting. No new complaints. Review of Systems Review of Systems: ROS unchanged Exam Const: General: uncomfortable (due to abdominal pain) Orientation/consciousness: patient oriented x3 GI: Inspection: non-distended GI Palp: Yes Soft to palpation, Yes Tenderness to palpation present (GI) (generalized tenderness most focally in the lower abdomen), Yes Guarding due to palpation present (GI) (LLQ, RLQ) and Yes Rebound tenderness present Auscultation: normal bowel sounds Objective Data Vital Signs Vital Signs: Vital Signs - 24 hr 09/12/22 16:00 09/12/22 15:00 09/12/22 17:00 Temperature Pulse Rate 71 87 77 Respiratory Rate 16 16 16 Blood Pressure 130/75 127/79 128/74 Pulse Oximetry 98 97 100 Oxygen Delivery 09/12/22 20:55 09/12/22 20:00 09/13/22 06:00 Temperature 97.9 F 96.9 F L Pulse Rate 71 78 Respiratory Rate 18 16 Blood Pressure 123/71 114/68 Pulse Oximetry 96 99 Oxygen Delivery Room Air 09/13/22 08:00 09/13/22 09:49 Temperature Pulse Rate Respiratory Rate Blood Pressure Pulse Oximetry 94 Oxygen Delivery Room Air Room Air Intake/Output Intake/Output: Intake & Output 09/10/22 09/11/22 09/12/22 09/13/22 23:59 23:59 23:59 23:59 Intake Total 1100 1170 Output Total 200 Balance 1100 970 Meds/Results Medications: Active Medications Generic Name Dose Route Start Last Admin Trade Name Freq PRN Reason Stop Dose Admin Hydromorphone HCl 0.5 mg 09/12/22 19:31 Hydromorphone Hcl Inj (*Crx) 1 Mg/Ml Syr IV PUSH Q3H PRN Pain Rated 4-6 Hydromorphone HCl 1 mg 09/12/22 19:31 09/13/22 12:08 Hydromorphone Hcl Inj (*Crx) 1 Mg/Ml Syr IV PUSH 1 mg Q3H PRN Administration Pain Rated 7-10 Sodium Chloride 1,000 mls @ 100 mls/hr 09/12/22 16:10 09/13/22 05:09 Normal Saline Iv IV CONT 100 mls/hr .Q10H CARL Administration Piperacillin/Tazobactam/Dextrose 3.375 gm in 50 mls @ 100 mls/hr 09/12/22 21:00 09/13/22 08:44 Zosyn 3.375 Gm/Ns 50 Ml IVPB 100 mls/hr Q6H CARL Administration Ondansetron HCl 4 mg 09/12/22 16:10 09/12/22 17:45 Ondansetron Inj 4 Mg/2 Ml Vial IV PUSH 4 mg Q4H PRN Administration Nausea Radiology Results: ITS Impressions Abdomen/Pelvis CT 09/12/22 14:53 IMPRESSION: Sigmoid colitis with adjacent localized free air indicating microperforation, source may be diverticulitis or other infectious, inflammatory or ischemic colitis. Labs Labs: Laboratory Results - last 24 hr 09/12/22 09/12/22 09/13/22 14:08 14:11 06:48 WBC 10.8 H 6.3 RBC 4.71 4.03 L Hgb 15.6 13.4 L Hct 45.5 40.1 L MCV 96.6 99.5 MCH 33.1 33.3 MCHC 34.3 33.4 RDW 12.4 12.6 Plt Count 195 142 L MPV 9.5 9.4 Immature Gran % (Auto) 0.3 0.5 Neut % (Auto) 81.1 H 76.4 H Lymph % (Auto) 12.7 L 13.9 L [place] % (Auto) 4.2 5.4 Eos % (Auto) 1.4 3.2 Baso % (Auto) 0.3 0.6 Lymph # (Auto) 1.37 0.87 L [place] # (Auto) 0.5 0.3 Eos # (Auto) 0.2 0.2 Baso # (Auto) 0.0 0.0 Abs Immat Gran (auto) 0.03 0.03 Absolute Neuts (auto) 8.7 H 4.8 Absolute Nucleated RBC 0.0 0.0 Nucleated RBC % 0.0 0
[2022-09-13] MEDS: KETOROLAC 15 MG/ML VIAL (*BKC) IV PUSH (14:18)
[2022-09-13 15:32] VITALS: BP 125/78; PULSE 78; RESP 18; TEMP 36.8; O2SAT 96
[2022-09-13] MEDS: oxyCODONE/ACETAMINOPHEN (*CRX) 5-325 MG TABLET 1 TABLET PO (20:00)
[2022-09-13] MEDS: ONDANSETRON INJ 4 MG/2 ML VIAL IV PUSH (20:00)
[2022-09-13 22:00] VITALS: BP 116/77; PULSE 70; RESP 16; TEMP 36.1; O2SAT 97
[2022-09-13 22:43] VITALS: O2SAT 97
[2022-09-14] MEDS: PIPERACILLN/TAZ 3.375GM/NS50ML 3.375 GM/50 ML BAG IVPB ×4 (01:07→23:35)
[2022-09-14] MEDS: HYDROmorphone HCL INJ (*CRX) 1 MG/ML SYR IV PUSH ×2 (01:08→23:45)
[2022-09-14] MEDS: SODIUM CHLORIDE 0.9% IV 1,000 ML 100 ML IV CONT ×3 (01:08→23:41)
[2022-09-14 06:00] VITALS: BP 131/83; PULSE 66; RESP 16; TEMP 36.2; O2SAT 98
[2022-09-14] MEDS: oxyCODONE/ACETAMINOPHEN (*CRX) 5-325 MG TABLET 1 TABLET PO ×2 (06:08→12:39)
[2022-09-14 06:40] LABS: Hematocrit 37.7 % (42.0-52.0); Hemoglobin 12.6 g/dL (14.0-18.0); Mean Corpuscular HGB Conc 33.4 g/dl (32-36); Mean Corpuscular Hemoglobin 32.9 pg (26-34); Mean Corpuscular Volume 98.4 fl (80-100); Mean Platelet Volume 9.9 fl (7.4-10.4); Platelet Count Result 145 k/mm3 (150-375); Red Blood Count 3.83 M/mm3 (4.6-6.20); White Blood Count 5.7 K/mm3 (4.5-10.0)
[2022-09-14 06:51] LABS: Anion Gap 4 mmol/L (8-16); Blood Urea Nitrogen 6 mg/dL (9-20); Calcium 7.7 mg/dL (8.4-10.2); Carbon Dioxide 28 mmol/L (22-30); Chloride 103 mmol/L (98-107); Estimated CRCL calculation 86 ml/min; Estimated Glomerular Filt Rate > 60; Glucose 86 mg/dL (65-110); Potassium 3.5 mmol/L (3.4-5.0); Sodium 135 mmol/L (137-145)
--- NOTE | 2022-09-14 08:01 | PM.IMPN ---
Progress Note: A&P Assessment and Plan (1) Colitis: Code(s): K52.9 - Noninfective gastroenteritis and colitis, unspecified Status: Acute Assessment and Plan: diverticulitis vs colitis with microperf, cont IV abx, LA 0.6, zosyn started 09/12 appreciate surgery consult conservative management ADAT, percocet q4h prn with dilaudid for breakthrough pain 09/14: check STAT KUB, change in abdominal exam concerning for worsening perforation (2) Dehydration: Code(s): E86.0 - Dehydration Status: Acute Assessment and Plan: encourage po fluids Plan Full Code DVT prophylaxis with SCDs Subjective Date/time seen: 09/14/22 08:01 Interval history: 57-year-old male with history of GERD presenting with abdominal pain and found to have diverticulitis with micro perforation noted. No overnight events noted. No chest pain or shortness of breath. No nausea, vomiting or diarrhea. No fevers or chills. Sudden onset of severe abdominal pain in RLQ, tearful. Review of Systems Review of Systems: 12 point review of systems was assessed and was negative except as noted in the HPI Exam Narrative: General: Acute distress due to pain and irritable HEENT: Atraumatic, normocephalic, mucous membranes moist CV: Regular rate and rhythm, S1, S2 Lungs: Clear to auscultation bilaterally, no rales or crackles noted, no wheezes, good air entry Abdomen: Mild distention, +guarding, +rebounding Extremities: Normal to inspection Skin: No rashes noted, no lesions or wounds seen Psych: Anxious Objective Data Vital Signs Vital Signs: Vital Signs - 24 hr 09/13/22 09:49 09/13/22 15:32 09/13/22 20:00 Temperature 98.3 F Pulse Rate 78 Respiratory Rate 18 Blood Pressure 125/78 Pulse Oximetry 94 96 Oxygen Delivery Room Air Room Air 09/13/22 22:00 09/13/22 22:43 09/14/22 06:00 Temperature 97.0 F L 97.2 F L Pulse Rate 70 66 Respiratory Rate 16 16 Blood Pressure 116/77 131/83 Pulse Oximetry 97 97 98 Oxygen Delivery Room Air Intake/Output Intake/Output: Intake & Output 09/11/22 09/12/22 09/13/22 09/14/22 23:59 23:59 23:59 23:59 Intake Total 1100 2560 1150 Output Total 800 800 Balance 1100 1760 350 Meds/Results Medications: Active Medications Generic Name Dose Route Start Last Admin Trade Name Freq PRN Reason Stop Dose Admin Hydromorphone HCl 0.5 mg 09/12/22 19:31 Hydromorphone Hcl Inj (*Crx) 1 Mg/Ml Syr IV PUSH Q3H PRN Pain Rated 4-6 Hydromorphone HCl 1 mg 09/12/22 19:31 09/14/22 01:08 Hydromorphone Hcl Inj (*Crx) 1 Mg/Ml Syr IV PUSH 1 mg Q3H PRN Administration BREAKTHROUGH PAIN Sodium Chloride 1,000 mls @ 100 mls/hr 09/12/22 16:10 09/14/22 01:08 Normal Saline Iv IV CONT 100 mls/hr .Q10H CARL Administration Piperacillin/Tazobactam/Dextrose 3.375 gm in 50 mls @ 100 mls/hr 09/12/22 21:00 09/14/22 01:07 Zosyn 3.375 Gm/Ns 50 Ml IVPB 100 mls/hr Q6H CARL Administration Ketorolac Tromethamine 15 mg 09/13/22 14:04 09/13/22 14:18 Ketorolac 15 Mg/Ml Vial (*Bkc) IV PUSH 15 mg Q6H PRN Administration Pain Rated 4-6 Ondansetron HCl 4 mg 09/12/22 16:10 09/13/22 20:00 Ondansetron Inj 4 Mg/2 Ml Vial IV PUSH 4 mg Q4H PRN Administration Nausea Oxycodone/Acetaminophen 1 tablet 09/13/22 15:49 09/14/22 06:08 Oxycodone/Acetaminophen (*Crx) 5-325 Mg Tablet PO 1 tablet Q4H PRN Administration Pain Rated 7-10 Radiology Results: ITS Impressions Abdomen/Pelvis CT 09/12/22 14:53 IMPRESSION: Sigmoid colitis with adjacent localized free air indicating microperforation, source may be diverticulitis or other infectious, inflammatory or ischemic colitis. Labs Labs: Laboratory Results - last 24 hr 09/14/22 06:04 WBC 5.7 RBC 3.83 L Hgb 12.6 L Hct 37.7 L MCV 98.4 MCH 32.9 MCHC 33.4 RDW 12.0 Plt Count 145 L MPV 9.9 Sodium 135 L
[2022-09-14 08:27] LABS: Alanine Aminotransferase 33 U/L (6-50); Albumin Level 3.1 g/dL (3.5-5.1); Alkaline Phosphatase 74 U/L (38-126); Anion Gap 3 mmol/L (8-16); Aspartate Amino Transferase 47 U/L (17-59); Bilirubin,Total 1.6 mg/dL (0.2-1.3); Blood Urea Nitrogen 6 mg/dL (9-20); Calcium 7.7 mg/dL (8.4-10.2); Carbon Dioxide 27 mmol/L (22-30); Chloride 104 mmol/L (98-107); Estimated CRCL calculation 86 ml/min; Estimated Glomerular Filt Rate > 60; Glucose 86 mg/dL (65-110); Potassium 3.5 mmol/L (3.4-5.0); Sodium 134 mmol/L (137-145)
[2022-09-14 08:33] LABS: Basophils Percent Auto 0.5 % (0.2-1.2); Eosinophils Absolute Auto 0.2 K/mm3 (0-0.3); Eosinophils Percent Auto 3.9 % (0-4.4); Hemoglobin 12.7 g/dL (14.0-18.0); Immature Granulocyte Absolute 0.01 K/mm3 (0.00-0.031); Immature Granulocyte Percent A 0.2 % (0-0.5); Mean Corpuscular HGB Conc 33.4 g/dl (32-36); Mean Corpuscular Hemoglobin 33.3 pg (26-34); Mean Corpuscular Volume 99.7 fl (80-100); Mean Platelet Volume 10.1 fl (7.4-10.4); Monocytes Absolute Auto 0.4 K/mm3 (0.1-0.6); Monocytes Percent Auto 6.8 % (2.6-8.5); Neutrophils Absolute Auto 3.9 K/mm3 (1.3-6.7); Neutrophils Percent Auto 70.6 % (45.5-73.1); Platelet Count Result 146 k/mm3 (150-375); Red Blood Count 3.81 M/mm3 (4.6-6.20); Red Cell Distribution Width 12.1 % (11.5-14.5); White Blood Count 5.6 K/mm3 (4.5-10.0)
[2022-09-14] MEDS: KETOROLAC 15 MG/ML VIAL (*BKC) IV PUSH ×2 (08:56→17:24)
--- NOTE | 2022-09-14 10:43 | WPDGIPROGNO ---
Progress Note: A&P Assessment and Plan (1) Diverticulitis: Code(s): K57.92 - Diverticulitis of intestine, part unspecified, without perforation or abscess without bleeding Status: Acute Assessment and Plan: CT scan which I reviewed reveals: Sigmoid colitis with adjacent localized free air indicating microperforation, source may be diverticulitis or other infectious, inflammatory or ischemic colitis. I did Explain to the patient that in most cases this resolved with antibiotics and bowel rest. I told that occasionally surgery is required but is best to avoid it in the acute phase. I also told that he would need a colonoscopy a few weeks to assess his colon and rule other pathology. white blood count is not 5700. (2) Abnormal CT scan, gastrointestinal tract: Code(s): R93.3 - Abnormal findings on diagnostic imaging of other parts of digestive tract Status: Acute Assessment and Plan: a CT scan done here in our emergency room in 2017 revealed thickening of the transverse colon descending colon sigmoid colon suggestive of ulcerative colitis or infectious colitis. He was apparently sent home on antibiotics but there was no follow-up care. He states that he has not had problems in between these 2 episodes. Plan I will let him try clear liquid diet today. He understands that we are trying to rest his digestive tract to help improve pain and healing. has epigastric pain now. Before advancing his diet to full liquids I will check a KUB. I doubt that he has free air but I want to make certain Subjective Date/time seen: 09/14/22 10:43 He states that the pain is a little better today. He did have a bowel movement which was semi formed stool but he had more pain while he was passing the stool. There was no blood in his stool. He was tolerating clear liquids last night. He is hungry would not mind eating more although now he is having discomfort in the epigastric area as well. On exam he was also tender in the epigastric area with some guarding. I told that I would like to check a x-ray to rule out free air before we advance his diet Exam Const: General: cooperative and healthy appearing Orientation/consciousness: patient oriented x3 HENMT: Head: normal to inspection Ears: hearing grossly normal bilaterally Mouth: Yes Normal oral and palatal mucosa present Eyes: General: appearance normal, both eyes and all related structures Neck: Neck: normal visual inspection Chest: Chest palpation & inspection: normal inspection of the chest Resp: Effort & Inspection: normal respiratory effort Auscultation: clear to auscultation bilaterally Cardio: Rate: regular rate Rhythm: regular rhythm GI: Inspection: normal to inspection GI Palp: Yes abdominal tenderness ( Diffuse, especially lower abdomen), Yes Guarding due to palpation present (GI), Yes No hepatosplenomegaly present, Yes Rebound tenderness present and Yes Other GI palpation findings present ( also tender today in the epigastric area) Auscultation: normal bowel sounds Skin: General skin exam: normal color and no jaundice Neuro: General: patient oriented x3 Speech: normal speech Objective Data Vital Signs Vital Signs: Vital Signs - 24 hr 09/13/22 15:32 09/13/22 20:00 09/13/22 22:00 Temperature 36.8 C 36.1 C L Pulse Rate 78 70 Respiratory Rate 18 16 Blood Pressure 125/78 116/77 Pulse Oximetry 96 97 Oxygen Delivery Room Air 09/13/22 22:43 09/14/22 06:00 09/14/22 08:30 Temperature 36.2 C L Pulse Rate 66 Respiratory Rate 16 Blood Pressure 131/83 Pulse Oximetry 97 98 Oxygen Delivery Room Air Room Air Intake/Output Intake/Output: Intake & Output 09/11/22 09/12/22 09/13/22 09/14/22 23:59 23:59 23:59 23:59 Intake Total 1100 2560 1980 Output Total 800 800 Balance 1100 1760 1180 Meds/Results Medications: Active Medications Generic Name Dose Route Start Last Admin Trade Name Freq PRN
[2022-09-14 14:00] VITALS: BP 132/86; PULSE 76; RESP 20; TEMP 36.3; O2SAT 96
--- NOTE | 2022-09-14 15:37 | PM.PNGS ---
Progress Note: A&P Assessment and Plan (1) Diverticulitis of colon with perforation: Code(s): K57.20 - Diverticulitis of large intestine with perforation and abscess without bleeding Status: Acute Assessment and Plan: exam improved, will advance to low fiber diet, cont IV abx Subjective Subjective Date/Time Seen: 09/14/22 15:37 Interval history: feels better today, still c intermittent pain, small BM this am, braydon clears Review of Systems Review of Systems: All systems reviewed & are unremarkable except as noted in HPI and below Exam Const: General: cooperative, comfortable and no acute distress Resp: Auscultation: clear to auscultation bilaterally Cardio: Rate: regular rate Rhythm: regular rhythm GI: Inspection: normal to inspection and distended GI Palp: Yes abdominal tenderness, Yes Soft to palpation, Yes Tenderness to palpation present (GI), No Guarding due to palpation present (GI) and No Rigid due to palpation Objective Data Vital Signs Vital Signs: Vital Signs - 24 hr 09/13/22 20:00 09/13/22 22:00 09/13/22 22:43 Temperature 36.1 C L Pulse Rate 70 Respiratory Rate 16 Blood Pressure 116/77 Pulse Oximetry 97 97 Oxygen Delivery Room Air Room Air 09/14/22 06:00 09/14/22 08:30 Temperature 36.2 C L Pulse Rate 66 Respiratory Rate 16 Blood Pressure 131/83 Pulse Oximetry 98 Oxygen Delivery Room Air Intake/Output Intake/Output: Intake & Output 09/11/22 09/12/22 09/13/22 09/14/22 23:59 23:59 23:59 23:59 Intake Total 1100 2560 3030 Output Total 800 800 Balance 1100 1760 2230 Meds/Results Medications: Active Medications Generic Name Dose Route Start Last Admin Trade Name Freq PRN Reason Stop Dose Admin Hydromorphone HCl 0.5 mg 09/12/22 19:31 Hydromorphone Hcl Inj (*Crx) 1 Mg/Ml Syr IV PUSH Q3H PRN Pain Rated 4-6 Hydromorphone HCl 1 mg 09/12/22 19:31 09/14/22 01:08 Hydromorphone Hcl Inj (*Crx) 1 Mg/Ml Syr IV PUSH 1 mg Q3H PRN Administration BREAKTHROUGH PAIN Sodium Chloride 1,000 mls @ 100 mls/hr 09/12/22 16:10 09/14/22 12:39 Normal Saline Iv IV CONT 100 mls/hr .Q10H CARL Administration Piperacillin/Tazobactam/Dextrose 3.375 gm in 50 mls @ 100 mls/hr 09/12/22 21:00 09/14/22 09:22 Zosyn 3.375 Gm/Ns 50 Ml IVPB Infused Q6H CARL Infusion Ketorolac Tromethamine 15 mg 09/13/22 14:04 09/14/22 08:56 Ketorolac 15 Mg/Ml Vial (*Bkc) IV PUSH 15 mg Q6H PRN Administration Pain Rated 4-6 Ondansetron HCl 4 mg 09/12/22 16:10 09/13/22 20:00 Ondansetron Inj 4 Mg/2 Ml Vial IV PUSH 4 mg Q4H PRN Administration Nausea Oxycodone/Acetaminophen 1 tablet 09/13/22 15:49 09/14/22 12:39 Oxycodone/Acetaminophen (*Crx) 5-325 Mg Tablet PO 1 tablet Q4H PRN Administration Pain Rated 7-10 Radiology Results: ITS Impressions Abdomen/Pelvis CT 09/12/22 14:53 IMPRESSION: Sigmoid colitis with adjacent localized free air indicating microperforation, source may be diverticulitis or other infectious, inflammatory or ischemic colitis. Abdomen X-Ray 09/14/22 12:44 IMPRESSION: 1. Normal bowel gas pattern. Labs Labs: Laboratory Results - last 24 hr 09/14/22 09/14/22 06:02 06:04 WBC 5.6 5.7 RBC 3.81 L 3.83 L Hgb 12.7 L 12.6 L Hct 38.0 L 37.7 L MCV 99.7 98.4 MCH 33.3 32.9 MCHC 33.4 33.4 RDW 12.1 12.0 Plt Count 146 L 145 L MPV 10.1 9.9 Immature Gran % (Auto) 0.2 Cancelled Neut % (Auto) 70.6 Cancelled Lymph % (Auto) 18.0 L Cancelled [place] % (Auto) 6.8 Cancelled Eos % (Auto) 3.9 Cancelled Baso % (Auto) 0.5 Cancelled Lymph # (Auto) 1.00 Cancelled [place] # (Auto) 0.4 Cancelled Eos # (Auto) 0.2 Cancelled Baso # (Auto) 0.0 Cancelled Abs Immat Gran (auto) 0.01 Cancelled Absolute Neuts (auto) 3.9 Cancelled Absolute Nucleated RBC 0.0 Cancelled Nucleated RBC % 0.0 Cancelled Sodium 134 L 135 L Potassium 3.
[2022-09-14] MEDS: MORPHINE SULFATE (*CRX) 2 MG/ML INJ IV PUSH (15:51)
[2022-09-14] MEDS: SIMETHICONE 125 MG CHEW TAB PO (17:33)
[2022-09-14] MEDS: IBUPROFEN IV 800 MG/200 ML 800 MG/200 ML BAG 400 MG IVPB (20:19)
[2022-09-14] MEDS: MORPHINE SULFATE (*CRX) 4 MG/ML INJ IV PUSH (21:30)
[2022-09-14 21:48] VITALS: BP 119/79; PULSE 88; RESP 20; TEMP 36.9; O2SAT 95
--- NOTE | 2022-09-15 01:26 | PC.NURSE ---
Pt complaining of increased pain and weakness. Dr Ybarra was notified. Pt has new pain medication orders and is now NPO with ice chips.
[2022-09-15] MEDS: MORPHINE SULFATE (*CRX) 4 MG/ML INJ IV PUSH ×4 (02:24→22:21)
[2022-09-15] MEDS: PIPERACILLN/TAZ 3.375GM/NS50ML 3.375 GM/50 ML BAG IVPB ×4 (02:25→22:21)
[2022-09-15] MEDS: IBUPROFEN IV 800 MG/200 ML 800 MG/200 ML BAG 200 MG IVPB ×2 (04:59→20:12)
[2022-09-15] MEDS: HYDROmorphone HCL INJ (*CRX) 1 MG/ML SYR IV PUSH ×4 (05:02→18:58)
[2022-09-15 06:00] VITALS: BP 110/73; PULSE 71; RESP 20; TEMP 36.8; O2SAT 96
[2022-09-15 06:34] LABS: Basophils Absolute Auto 0.1 K/mm3 (0.0-0.1); Basophils Percent Auto 0.7 % (0.2-1.2); Eosinophils Absolute Auto 0.3 K/mm3 (0-0.3); Eosinophils Percent Auto 3.3 % (0-4.4); Hematocrit 37.6 % (42.0-52.0); Hemoglobin 12.8 g/dL (14.0-18.0); Immature Granulocyte Absolute 0.03 K/mm3 (0.00-0.031); Immature Granulocyte Percent A 0.4 % (0-0.5); Lymphocytes Absolute Auto 0.81 K/mm3 (0.9-3.2); Lymphocytes Percent Auto 10.7 % (18.3-44.2); Mean Corpuscular Hemoglobin 33.7 pg (26-34); Mean Corpuscular Volume 98.9 fl (80-100); Mean Platelet Volume 9.6 fl (7.4-10.4); Monocytes Absolute Auto 0.5 K/mm3 (0.1-0.6); Monocytes Percent Auto 7.1 % (2.6-8.5); Neutrophils Absolute Auto 5.9 K/mm3 (1.3-6.7); Neutrophils Percent Auto 77.8 % (45.5-73.1); Platelet Count Result 167 k/mm3 (150-375); White Blood Count 7.6 K/mm3 (4.5-10.0)
[2022-09-15 06:52] LABS: Alanine Aminotransferase 33 U/L (6-50); Alkaline Phosphatase 78 U/L (38-126); Anion Gap 5 mmol/L (8-16); Aspartate Amino Transferase 37 U/L (17-59); Bilirubin,Total 1.5 mg/dL (0.2-1.3); Blood Urea Nitrogen 6 mg/dL (9-20); Calcium 7.8 mg/dL (8.4-10.2); Carbon Dioxide 26 mmol/L (22-30); Chloride 104 mmol/L (98-107); Estimated CRCL calculation 97 ml/min; Estimated Glomerular Filt Rate > 60; Glucose 78 mg/dL (65-110); Potassium 3.5 mmol/L (3.4-5.0); Sodium 135 mmol/L (137-145)
--- NOTE | 2022-09-15 09:42 | WPDGIPROGNO ---
Progress Note: A&P Assessment and Plan (1) Diverticulitis of colon with perforation: Code(s): K57.20 - Diverticulitis of large intestine with perforation and abscess without bleeding Status: Acute Assessment and Plan: repeat CT Scan with increased free intraperitoneal gas extending into the upper abdomen and a 4.7 x 2.3 x 3.0 cm loculated fluid collection in the right lower quadrant surgery on board and he is npo status on iv antibiotics (2) Abnormal CT scan, gastrointestinal tract: Code(s): R93.3 - Abnormal findings on diagnostic imaging of other parts of digestive tract Status: Acute (3) Dehydration: Code(s): E86.0 - Dehydration Status: Acute Assessment and Plan: treated (4) Diverticulitis: Code(s): K57.92 - Diverticulitis of intestine, part unspecified, without perforation or abscess without bleeding Status: Acute Assessment and Plan: on abx will need surgery given worsening findings (5) Abdominal pain: Qualifiers: Abdominal location: generalized Qualified Code(s): R10.84 - Generalized abdominal pain Code(s): R10.9 - Unspecified abdominal pain Status: Inactive Subjective Date/time seen: 09/15/22 09:42 Interval history: he developed more pain yesterday and CT scan was done again, showed worsening findings. Pain is better after medication, he is npo Review of Systems Review of Systems: All systems reviewed & are unremarkable except as noted in HPI and below Exam Const: General: No no acute distress HENMT: Face/Nose/Sinus: Normal nares present Eyes: General: appearance normal, both eyes and all related structures Neck: Neck: supple Resp: Effort & Inspection: normal respiratory effort Cardio: Rate: regular rate GI: Inspection: distended GI Palp: Yes Tenderness to palpation present (GI) (rebound +) and Yes Guarding due to palpation present (GI) Skin: General skin exam: normal color Neuro: Speech: normal speech Motor exam (neuro): 5/5 motor strength present throughout Extrem: General: normal to inspection Psych: Mental Status: mental status grossly normal Objective Data Vital Signs Vital Signs: Vital Signs - 24 hr 09/14/22 14:00 09/14/22 21:48 09/14/22 20:00 Temperature 97.4 F L 98.5 F Pulse Rate 76 88 Respiratory Rate 20 20 Blood Pressure 132/86 119/79 Pulse Oximetry 96 95 Oxygen Delivery Room Air 09/15/22 06:00 09/15/22 07:33 Temperature 98.2 F Pulse Rate 71 Respiratory Rate 20 Blood Pressure 110/73 Pulse Oximetry 96 Oxygen Delivery Room Air Intake/Output Intake/Output: Intake & Output 09/12/22 09/13/22 09/14/22 09/15/22 23:59 23:59 23:59 23:59 Intake Total 1100 2560 4280 170 Output Total 800 800 525 Balance 1100 1760 3480 -355 Meds/Results Medications: Active Medications Generic Name Dose Route Start Last Admin Trade Name Freq PRN Reason Stop Dose Admin Hydromorphone HCl 0.5 mg 09/12/22 19:31 Hydromorphone Hcl Inj (*Crx) 1 Mg/Ml Syr IV PUSH Q3H PRN Pain Rated 4-6 Hydromorphone HCl 1 mg 09/12/22 19:31 09/15/22 05:02 Hydromorphone Hcl Inj (*Crx) 1 Mg/Ml Syr IV PUSH 1 mg Q3H PRN Administration BREAKTHROUGH PAIN Sodium Chloride 1,000 mls @ 100 mls/hr 09/12/22 16:10 09/14/22 23:41 Normal Saline Iv IV CONT 100 mls/hr .Q10H CARL Administration Piperacillin/Tazobactam/Dextrose 3.375 gm in 50 mls @ 100 mls/hr 09/12/22 21:00 09/15/22 02:55 Zosyn 3.375 Gm/Ns 50 Ml IVPB 0 mls/hr Q6H CARL Infusion Ibuprofen 800 mg in 200 mls @ 400 mls/hr 09/14/22 20:00 09/15/22 08:30 Caldolor 800 Mg/200 Ml IVPB Not Given Q6H CARL Morphine Sulfate 2 mg 09/14/22 19:37 Morphine Sulfate (*Crx) 2 Mg/Ml Inj IV PUSH Q2H PRN Pain Rated 4-6 Morphine Sulfate 4 mg 09/14/22 19:37 09/15/22 08:14 Morphine Sulfate (*Crx) 4 Mg/Ml Inj IV PUSH 4 mg Q2H PRN Administration Pain Rated 7-10 Ond
--- NOTE | 2022-09-15 11:59 | PM.IMPN ---
Progress Note: A&P Assessment and Plan (1) Colitis: Code(s): K52.9 - Noninfective gastroenteritis and colitis, unspecified Status: Acute Assessment and Plan: diverticulitis vs colitis with microperf, cont IV abx, LA 0.6, zosyn started 09/12 appreciate surgery consult conservative management ADAT, percocet q4h prn with dilaudid for breakthrough pain 09/14: check STAT KUB, change in abdominal exam concerning for worsening perforation 09/15: CT showed worsening perf, symptoms improved with pain medication, npo, may need TPN, monitor, appreciate surgical consultation (2) Dehydration: Code(s): E86.0 - Dehydration Status: Acute Assessment and Plan: encourage po fluids Plan Full Code DVT prophylaxis with SCDs Subjective Date/time seen: 09/15/22 11:59 Interval history: 57-year-old male with history of GERD presenting with abdominal pain and found to have diverticulitis with micro perforation noted. No overnight events noted. No chest pain or shortness of breath. No nausea, vomiting or diarrhea. No fevers or chills. Improved abdominal pain noted. Review of Systems Review of Systems: 12 point review of systems was assessed and was negative except as noted in the HPI Exam Narrative: General: No acute distress, alert and oriented per baseline HEENT: Atraumatic, normocephalic, mucous membranes moist CV: Regular rate and rhythm, S1, S2 Lungs: Clear to auscultation bilaterally, no rales or crackles noted, no wheezes, good air entry Abdomen: Mild distention, TTP, no rebounding/guarding Extremities: Normal to inspection Skin: No rashes noted, no lesions or wounds seen Psych: Euthymic, appropriate affect Objective Data Vital Signs Vital Signs: Vital Signs - 24 hr 09/14/22 14:00 09/14/22 21:48 09/14/22 20:00 Temperature 97.4 F L 98.5 F Pulse Rate 76 88 Respiratory Rate 20 20 Blood Pressure 132/86 119/79 Pulse Oximetry 96 95 Oxygen Delivery Room Air 09/15/22 06:00 09/15/22 07:33 Temperature 98.2 F Pulse Rate 71 Respiratory Rate 20 Blood Pressure 110/73 Pulse Oximetry 96 Oxygen Delivery Room Air Intake/Output Intake/Output: Intake & Output 09/12/22 09/13/22 09/14/2203/23 23:59 23:59 23:59 23:59 Intake Total 1100 2560 4280 220 Output Total 800 800 525 Balance 1100 1760 3480 -305 Meds/Results Medications: Active Medications Generic Name Dose Route Start Last Admin Trade Name Freq PRN Reason Stop Dose Admin Hydromorphone HCl 0.5 mg 09/12/22 19:31 Hydromorphone Hcl Inj (*Crx) 1 Mg/Ml Syr IV PUSH Q3H PRN Pain Rated 4-6 Hydromorphone HCl 1 mg 09/12/22 19:31 09/15/22 09:57 Hydromorphone Hcl Inj (*Crx) 1 Mg/Ml Syr IV PUSH 1 mg Q3H PRN Administration BREAKTHROUGH PAIN Sodium Chloride 1,000 mls @ 100 mls/hr 09/12/22 16:10 09/14/22 23:41 Normal Saline Iv IV CONT 100 mls/hr .Q10H CARL Administration Piperacillin/Tazobactam/Dextrose 3.375 gm in 50 mls @ 100 mls/hr 09/12/22 21:00 09/15/22 09:46 Zosyn 3.375 Gm/Ns 50 Ml IVPB 100 mls/hr Q6H CARL Administration Ibuprofen 800 mg in 200 mls @ 400 mls/hr 09/14/22 20:00 09/15/22 08:30 Caldolor 800 Mg/200 Ml IVPB Not Given Q6H CARL Morphine Sulfate 2 mg 09/14/22 19:37 Morphine Sulfate (*Crx) 2 Mg/Ml Inj IV PUSH Q2H PRN Pain Rated 4-6 Morphine Sulfate 4 mg 09/14/22 19:37 09/15/22 11:19 Morphine Sulfate (*Crx) 4 Mg/Ml Inj IV PUSH 4 mg Q2H PRN Administration Pain Rated 7-10 Ondansetron HCl 4 mg 09/12/22 16:10 09/13/22 20:00 Ondansetron Inj 4 Mg/2 Ml Vial IV PUSH 4 mg Q4H PRN Administration Nausea Radiology Results: ITS Impressions Abdomen X-Ray 09/14/22 16:23 IMPRESSION: 1. No radiographic correlate for the patient's symptoms. Abdomen/Pelvis CT 09/14/22 20:10 IMPRESSION: 1. Sigmoid diverticulitis with progression of associated bowel perforation n
--- NOTE | 2022-09-15 12:17 | PM.PNGS ---
Progress Note: A&P Assessment and Plan (1) Diverticulitis of colon with perforation: Code(s): K57.20 - Diverticulitis of large intestine with perforation and abscess without bleeding Status: Acute Assessment and Plan: Recurrent severe pain last night with CT scan evidence of progression diverticulitis and now 4.7 cm irregular fluid collection but no definite abscess. I discussed the findings and pathophysiology with the patient. He feels much better this morning. I will continue his current dose of analgesics both the scheduled IV ibuprofen as well as p.r.n. morphine sulfate. He will continue bowel rest except for ice chips. Continue IV fluids. He is very tender in the area of the inflammatory process, the right lower quadrant. This will need to improved significantly before he can start eating again. I will add gentamicin to the IV Zosyn antibiotics. Discussed the possibility of TPN if improvement is slow. Also discussed the possibility of surgical intervention which usually requires colostomy in this instance. Subjective Subjective Date/Time Seen: 09/15/22 12:17 Patient reports: feels better, pain is less, no flatus, no bowel movement and afebrile Interval history: Last night I was called and patient experienced severe right lower quadrant abdominal pain. He was extremely uncomfortable. Repeat CT scan showed recurrence of his diverticulitis with a 4.7 cm fluid collection now in the right lower quadrant and right mid abdomen. Patient's analgesics were changed to accommodate his increased pain with p.r.n. morphine sulfate and scheduled dose of IV ibuprofen. He feels much better this morning. Pain is nearly gone but he is still uncomfortable and tender especially in the right lower quadrant. He was also made NPO except ice chips last night. Review of Systems Review of Systems: All systems reviewed & are unremarkable except as noted in HPI and below (H p.o. and those items noted below) Constitutional: Constitutional: Denies chills and Denies fever(s) Cardiovascular: Cardiovascular: Denies chest pain, Denies diaphoresis, Denies dyspnea and Denies paroxysmal nocturnal dyspnea Respiratory: Respiratory: Denies chest congestion, Denies cough and Denies dyspnea Integumentary/Breasts: Skin/Breast: Denies lesions and Denies rash Exam Const: General: cooperative, comfortable, no acute distress, alert and awake Nutritional Appearance: average body habitus Orientation/consciousness: patient oriented x3 GI: Inspection: non-distended and scaphoid GI Palp: Yes abdominal tenderness (Mild tenderness except for right lower quadrant), Yes Soft to palpation, Yes Tenderness to palpation present (GI) (Very tender with guarding right lower quadrant. ) and Yes Guarding due to palpation present (GI) (Right lower quadrant) Auscultation: absent bowel sounds Neuro: General: patient oriented x3 and no focal motor deficits Extrem: General: no calf tenderness and no edema Psych: Affect: normal affect Insight: Good insight present (Psych) Judgement: Good judgement present (Psych) Objective Data Vital Signs Vital Signs: Vital Signs - 24 hr 09/14/22 14:00 09/14/22 21:48 09/14/22 20:00 Temperature 36.3 C L 36.9 C Pulse Rate 76 88 Respiratory Rate 20 20 Blood Pressure 132/86 119/79 Pulse Oximetry 96 95 Oxygen Delivery Room Air 09/15/22 06:00 09/15/22 07:33 Temperature 36.8 C Pulse Rate 71 Respiratory Rate 20 Blood Pressure 110/73 Pulse Oximetry 96 Oxygen Delivery Room Air Intake/Output Intake/Output: Intake & Output 09/12/22 09/13/22 09/14/22 09/15/22 23:59 23:59 23:59 23:59 Intake Total 1100 2560 4280 220 Output Total 800 800 525 Balance 1100 1760 3480 -305 Meds/Results Medications: Active Medications Generic Name Dose Route Start Last Admin Trade Name Freq PRN Reason Stop Dose Admin Hydromorphone HCl 0.5 mg 09/12/22 19:31 Hydromorphone Hcl Inj (*Crx) 1 Mg/Ml Syr IV P
[2022-09-15 13:50] VITALS: BP 124/74; PULSE 64; RESP 20; TEMP 36.1; O2SAT 99
[2022-09-15] MEDS: GENTAMICIN SULFATE INJ 375 MG in DEXTROSE 5% 100 ML 100 MG IVPB (15:07)
[2022-09-15] MEDS: IBUPROFEN IV 800 MG/200 ML 800 MG/200 ML BAG 400 MG IVPB (15:08)
[2022-09-15] MEDS: SODIUM CHLORIDE 0.9% IV 1,000 ML 100 ML IV CONT ×2 (15:09→22:21)
[2022-09-15] MEDS: MORPHINE SULFATE (*CRX) 2 MG/ML INJ IV PUSH (16:41)
[2022-09-15 22:00] VITALS: BP 131/71; PULSE 59; RESP 16; TEMP 35.9; O2SAT 98
[2022-09-16] MEDS: IBUPROFEN IV 800 MG/200 ML 800 MG/200 ML BAG 200 MG IVPB ×2 (01:45→08:58)
[2022-09-16] MEDS: HYDROmorphone HCL INJ (*CRX) 1 MG/ML SYR IV PUSH ×2 (02:13→09:12)
[2022-09-16] MEDS: PIPERACILLN/TAZ 3.375GM/NS50ML 3.375 GM/50 ML BAG IVPB ×4 (02:13→21:32)
[2022-09-16] MEDS: ONDANSETRON INJ 4 MG/2 ML VIAL IV PUSH (02:17)
[2022-09-16 06:00] VITALS: BP 117/73; PULSE 53; RESP 16; TEMP 36; O2SAT 100
[2022-09-16 06:08] LABS: Basophils Percent Auto 0.3 % (0.2-1.2); Eosinophils Absolute Auto 0.4 K/mm3 (0-0.3); Eosinophils Percent Auto 4.8 % (0-4.4); Hematocrit 38.6 % (42.0-52.0); Hemoglobin 12.7 g/dL (14.0-18.0); Immature Granulocyte Absolute 0.05 K/mm3 (0.00-0.031); Immature Granulocyte Percent A 0.6 % (0-0.5); Lymphocytes Absolute Auto 1.03 K/mm3 (0.9-3.2); Lymphocytes Percent Auto 11.7 % (18.3-44.2); Mean Corpuscular HGB Conc 32.9 g/dl (32-36); Mean Corpuscular Hemoglobin 33.3 pg (26-34); Mean Corpuscular Volume 101.3 fl (80-100); Mean Platelet Volume 9.7 fl (7.4-10.4); Monocytes Absolute Auto 0.7 K/mm3 (0.1-0.6); Monocytes Percent Auto 7.7 % (2.6-8.5); Neutrophils Absolute Auto 6.6 K/mm3 (1.3-6.7); Neutrophils Percent Auto 74.9 % (45.5-73.1); Platelet Count Result 185 k/mm3 (150-375); Red Blood Count 3.81 M/mm3 (4.6-6.20); Red Cell Distribution Width 12.1 % (11.5-14.5); White Blood Count 8.8 K/mm3 (4.5-10.0)
[2022-09-16 06:20] LABS: Alanine Aminotransferase 26 U/L (6-50); Albumin Level 2.9 g/dL (3.5-5.1); Alkaline Phosphatase 69 U/L (38-126); Anion Gap 10 mmol/L (8-16); Aspartate Amino Transferase 25 U/L (17-59); Bilirubin,Total 0.8 mg/dL (0.2-1.3); Blood Urea Nitrogen 7 mg/dL (9-20); Calcium 7.9 mg/dL (8.4-10.2); Carbon Dioxide 19 mmol/L (22-30); Chloride 107 mmol/L (98-107); Estimated CRCL calculation 86 ml/min; Estimated Glomerular Filt Rate > 60; Glucose 63 mg/dL (65-110); Potassium 3.8 mmol/L (3.4-5.0); Sodium 136 mmol/L (137-145)
[2022-09-16] MEDS: MORPHINE SULFATE (*CRX) 4 MG/ML INJ IV PUSH ×4 (06:41→20:27)
[2022-09-16 09:36] VITALS: O2SAT 100
[2022-09-16] MEDS: SODIUM CHLORIDE 0.9% IV 1,000 ML 100 ML IV CONT (10:24)
[2022-09-16] MEDS: GENTAMICIN SULFATE INJ 375 MG in DEXTROSE 5% 100 ML 100.58 MG IVPB (13:10)
[2022-09-16] MEDS: IBUPROFEN IV 800 MG/200 ML 800 MG/200 ML BAG 400 MG IVPB (13:10)
[2022-09-16 13:55] VITALS: BP 133/82; PULSE 69; RESP 20; TEMP 36.1; O2SAT 98
--- NOTE | 2022-09-16 14:32 | PM.IMPN ---
Progress Note: A&P Assessment and Plan (1) Colitis: Code(s): K52.9 - Noninfective gastroenteritis and colitis, unspecified Status: Acute Assessment and Plan: diverticulitis vs colitis with microperf, cont IV abx, LA 0.6, zosyn started 09/12 appreciate surgery consult conservative management ADAT, percocet q4h prn with dilaudid for breakthrough pain 09/14: check STAT KUB, change in abdominal exam concerning for worsening perforation 09/15: CT showed worsening perf, symptoms improved with pain medication, npo, may need TPN, monitor, appreciate surgical consultation 09/16: improving, cont abx, pain control, appreciate surgical consultation (2) Dehydration: Code(s): E86.0 - Dehydration Status: Acute Assessment and Plan: encourage po fluids Plan Full Code DVT prophylaxis with SCDs Subjective Date/time seen: 09/16/22 14:32 Interval history: 57-year-old male with history of GERD presenting with abdominal pain and found to have diverticulitis with micro perforation noted. No overnight events noted. No chest pain or shortness of breath. No nausea, vomiting or diarrhea. No fevers or chills. Improved abdominal pain noted. Passing flatus, small bowel movement, mainly liquid. Review of Systems Review of Systems: 12 point review of systems was assessed and was negative except as noted in the HPI Exam Narrative: General: No acute distress, alert and oriented per baseline HEENT: Atraumatic, normocephalic, mucous membranes moist CV: Regular rate and rhythm, S1, S2 Lungs: Clear to auscultation bilaterally, no rales or crackles noted, no wheezes, good air entry Abdomen: Soft, non distended, mildly TTP Extremities: Normal to inspection Skin: No rashes noted, no lesions or wounds seen Psych: Euthymic, appropriate affect Objective Data Vital Signs Vital Signs: Vital Signs - 24 hr 09/15/22 20:00 09/15/22 22:00 09/16/22 06:00 Temperature 96.7 F L 96.8 F L Pulse Rate 59 L 53 L Respiratory Rate 16 16 Blood Pressure 131/71 117/73 Pulse Oximetry 98 100 Oxygen Delivery Room Air 09/16/22 07:54 09/16/22 09:36 09/16/22 13:55 Temperature 97.0 F L Pulse Rate 69 Respiratory Rate 20 Blood Pressure 133/82 Pulse Oximetry 100 98 Oxygen Delivery Room Air Room Air Intake/Output Intake/Output: Intake & Output 09/13/22 09/14/22 09/15/22 09/16/22 23:59 23:59 23:59 23:59 Intake Total 2560 4280 3079.375 1825 Output Total 800 800 525 250 Balance 1760 3480 2554.375 1575 Meds/Results Medications: Active Medications Generic Name Dose Route Start Last Admin Trade Name Freq PRN Reason Stop Dose Admin Hydromorphone HCl 0.5 mg 09/12/22 19:31 Hydromorphone Hcl Inj (*Crx) 1 Mg/Ml Syr IV PUSH Q3H PRN Pain Rated 4-6 Hydromorphone HCl 1 mg 09/12/22 19:31 09/16/22 09:12 Hydromorphone Hcl Inj (*Crx) 1 Mg/Ml Syr IV PUSH 1 mg Q3H PRN Administration BREAKTHROUGH PAIN Sodium Chloride 1,000 mls @ 100 mls/hr 09/12/22 16:10 09/16/22 10:24 Normal Saline Iv IV CONT 100 mls/hr .Q10H CARL Administration Piperacillin/Tazobactam/Dextrose 3.375 gm in 50 mls @ 100 mls/hr 09/12/22 21:00 09/16/22 09:29 Zosyn 3.375 Gm/Ns 50 Ml IVPB Infused Q6H CARL Infusion Ibuprofen 800 mg in 200 mls @ 400 mls/hr 09/14/22 20:00 09/16/22 13:40 Caldolor 800 Mg/200 Ml IVPB Infused Q6H CARL Infusion Gentamicin Sulfate 375 mg/ 109.375 mls @ 100.575 mls/hr 09/16/22 13:00 09/16/22 13:10 Dextrose IVPB 100.58 mls/hr Q24H CARL Administration Morphine Sulfate 2 mg 09/14/22 19:37 09/15/22 16:41 Morphine Sulfate (*Crx) 2 Mg/Ml Inj IV PUSH 2 mg Q2H PRN Administration Pain Rated 4-6 Morphine Sulfate 4 mg 09/14/22 19:37 09/16/22 13:09 Morphine Sulfate (*Crx) 4 Mg/Ml Inj IV PUSH 4 mg Q2H PRN Administration Pain Rated 7-10 Ondansetron HCl 4 mg 09/12/22 16:10 09/16/22 02:17 Ondansetron I
--- NOTE | 2022-09-16 15:09 | PM.PNGS ---
Progress Note: A&P Assessment and Plan (1) Diverticulitis of colon with perforation: Code(s): K57.20 - Diverticulitis of large intestine with perforation and abscess without bleeding Status: Acute Assessment and Plan: Improving with bowel rest and Zosyn plus gentamicin. Continue NPO except sips of ice chips. Hopefully, if tenderness continues to improve, patient can restart some liquids tomorrow. Discussed with him the option for elective resection assuming he does resolve his current episode of acute diverticulitis. Also discussed with him and his sister that sometimes an abscess will develope which can require percutaneous drainage. For now, nothing indicated other than bowel rest and continued antibiotics as above. Subjective Subjective Date/Time Seen: 09/16/22 15:09 Patient reports: feels better, pain is less, bowel movement and afebrile Interval history: Abdominal pain improved again today. Not much of an appetite as yet. Does feel better. Had a bowel movement. Review of Systems Review of Systems: All systems reviewed & are unremarkable except as noted in HPI and below (HPI and those items noted below) Constitutional: Constitutional: Denies chills and Denies fever(s) Cardiovascular: Cardiovascular: Denies chest pain, Denies diaphoresis, Denies dyspnea and Denies paroxysmal nocturnal dyspnea Respiratory: Respiratory: Denies chest congestion, Denies cough and Denies dyspnea Integumentary/Breasts: Skin/Breast: Denies lesions and Denies rash Exam Const: General: comfortable and no acute distress Orientation/consciousness: patient oriented x3 GI: Inspection: non-distended, scaphoid and no scars GI Palp: Yes Soft to palpation, Yes Tenderness to palpation present (GI) (Overall less tenderness, right lower quadrant tenderness improved also), Yes Guarding due to palpation present (GI) (Mild guarding right lower quadrant), No Hernia present, No Palpable mass present and No Rebound tenderness present Auscultation: Hypoactive bowel sounds present Neuro: General: patient oriented x3 and no focal motor deficits Extrem: General: no calf tenderness and no edema Psych: Affect: normal affect Insight: Good insight present (Psych) Judgement: Good judgement present (Psych) Objective Data Vital Signs Vital Signs: Vital Signs - 24 hr 09/15/22 20:00 09/15/22 22:00 09/16/22 06:00 Temperature 35.9 C L 36.0 C L Pulse Rate 59 L 53 L Respiratory Rate 16 16 Blood Pressure 131/71 117/73 Pulse Oximetry 98 100 Oxygen Delivery Room Air 09/16/22 07:54 09/16/22 09:36 09/16/22 13:55 Temperature 36.1 C L Pulse Rate 69 Respiratory Rate 20 Blood Pressure 133/82 Pulse Oximetry 100 98 Oxygen Delivery Room Air Room Air Intake/Output Intake/Output: Intake & Output 09/13/22 09/14/22 09/15/22 09/16/22 23:59 23:59 23:59 23:59 Intake Total 2560 4280 3079.375 1934.375 Output Total 800 800 525 250 Balance 1760 3480 2554.375 1684.375 Meds/Results Medications: Active Medications Generic Name Dose Route Start Last Admin Trade Name Freq PRN Reason Stop Dose Admin Sodium Chloride 1,000 mls @ 100 mls/hr 09/12/22 16:10 09/16/22 10:24 Normal Saline Iv IV CONT 100 mls/hr .Q10H CARL Administration Piperacillin/Tazobactam/Dextrose 3.375 gm in 50 mls @ 100 mls/hr 09/12/22 21:00 09/16/22 09:29 Zosyn 3.375 Gm/Ns 50 Ml IVPB Infused Q6H CARL Infusion Ibuprofen 800 mg in 200 mls @ 400 mls/hr 09/14/22 20:00 09/16/22 13:40 Caldolor 800 Mg/200 Ml IVPB Infused Q6H CARL Infusion Gentamicin Sulfate 375 mg/ 109.375 mls @ 100.575 mls/hr 09/16/22 13:00 09/16/22 14:16 Dextrose IVPB Infused Q24H CARL Infusion Morphine Sulfate 2 mg 09/14/22 19:37 09/15/22 16:41 Morphine Sulfate (*Crx) 2 Mg/Ml Inj IV PUSH 2 mg Q2H PRN Administration Pain Rated 4-6 Morphine Sulfate 4 mg 09/14/22 19:37 09/16/22 13:09 Morphine Sulfate (*Crx) 4 Mg/Ml Inj IV PUSH
[2022-09-16] MEDS: KCL 20 MEQ/D5/0.9% SOD CHL 1,000 ML 80 ML IV CONT (16:40)
--- NOTE | 2022-09-16 20:02 | WPDGIPROGNO ---
Progress Note: A&P Assessment and Plan (1) Diverticulitis of colon with perforation: Code(s): K57.20 - Diverticulitis of large intestine with perforation and abscess without bleeding Status: Acute Assessment and Plan: exam is better from yesterday, less pain on medical treatment and npo status surgery on board given perforation- clinically better today, monitor closely on iv antibiotics (2) Abnormal CT scan, gastrointestinal tract: Code(s): R93.3 - Abnormal findings on diagnostic imaging of other parts of digestive tract Status: Acute Assessment and Plan: perforated diverticulitis (3) Dehydration: Code(s): E86.0 - Dehydration Status: Acute Assessment and Plan: ivf (4) Diverticulitis: Code(s): K57.92 - Diverticulitis of intestine, part unspecified, without perforation or abscess without bleeding Status: Acute Assessment and Plan: on abx may need surgery based on clinical course (5) Abdominal pain: Qualifiers: Abdominal location: generalized Qualified Code(s): R10.84 - Generalized abdominal pain Code(s): R10.9 - Unspecified abdominal pain Status: Inactive Subjective Date/time seen: 09/16/22 20:02 Interval history: pain has improved and today feeling much better, still npo Review of Systems Review of Systems: All systems reviewed & are unremarkable except as noted in HPI and below Exam Const: General: comfortable and no acute distress Orientation/consciousness: patient oriented x3 HENMT: Face/Nose/Sinus: Normal nares present Eyes: General: appearance normal, both eyes and all related structures Neck: Neck: supple Resp: Effort & Inspection: normal respiratory effort Cardio: Rate: regular rate GI: GI Palp: Yes Soft to palpation, Yes Tenderness to palpation present (GI) (Overall less tenderness, right lower quadrant tenderness improved also), Yes Guarding due to palpation present (GI) (Mild guarding right lower quadrant), No Hernia present and No Palpable mass present Auscultation: Hypoactive bowel sounds present Skin: General skin exam: normal color Neuro: General: patient oriented x3 and no focal motor deficits Extrem: General: no calf tenderness and no edema Psych: Affect: normal affect Insight: Good insight present (Psych) Judgement: Good judgement present (Psych) Objective Data Vital Signs Vital Signs: Vital Signs - 24 hr 09/15/22 22:00 09/16/22 06:00 09/16/22 07:54 Temperature 96.7 F L 96.8 F L Pulse Rate 59 L 53 L Respiratory Rate 16 16 Blood Pressure 131/71 117/73 Pulse Oximetry 98 100 Oxygen Delivery Room Air 09/16/22 09:36 09/16/22 13:55 Temperature 97.0 F L Pulse Rate 69 Respiratory Rate 20 Blood Pressure 133/82 Pulse Oximetry 100 98 Oxygen Delivery Room Air Intake/Output Intake/Output: Intake & Output 09/13/22 09/14/22 09/15/22 09/16/22 23:59 23:59 23:59 23:59 Intake Total 2560 4280 3079.375 1984.375 Output Total 800 800 525 250 Balance 1760 3480 2554.375 1734.375 Meds/Results Medications: Active Medications Generic Name Dose Route Start Last Admin Trade Name Freq PRN Reason Stop Dose Admin Piperacillin/Tazobactam/Dextrose 3.375 gm in 50 mls @ 100 mls/hr 09/12/22 21:00 09/16/22 16:15 Zosyn 3.375 Gm/Ns 50 Ml IVPB Infused Q6H CARL Infusion Gentamicin Sulfate 375 mg/ 109.375 mls @ 100.575 mls/hr 09/16/22 13:00 09/16/22 14:16 Dextrose IVPB Infused Q24H CARL Infusion Ibuprofen 800 mg in 200 mls @ 400 mls/hr 09/16/22 15:08 Caldolor 800 Mg/200 Ml IVPB Q6H PRN Pain Rated 1-3 Potassium Chloride/Dextrose/Sod Cl 1,000 mls @ 80 mls/hr 09/16/22 15:10 09/16/22 16:40 Kcl 20 Meq/D5/0.9% Sod Chl IV CONT 80 mls/hr .[id number] CARL Administration Morphine Sulfate 2 mg 09/14/22 19:37 09/15/22 16:41 Morphine Sulfate (*Crx) 2 Mg/Ml Inj IV PUSH 2 mg Q2H PRN Administration Pain Rated 4-6 Mor
[2022-09-16] MEDS: diphenhydrAMINE HCl CAP 25 MG CAPSULE 50 MG PO (20:27)
[2022-09-16] MEDS: DEXTROSE 5%/0.9% SOD CHL 1,000 ML 80 ML IV CONT (21:32)
[2022-09-16 22:00] VITALS: BP 126/88; PULSE 64; RESP 20; TEMP 36.2; O2SAT 98
[2022-09-17] MEDS: MORPHINE SULFATE (*CRX) 4 MG/ML INJ IV PUSH ×4 (03:02→22:32)
[2022-09-17] MEDS: PIPERACILLN/TAZ 3.375GM/NS50ML 3.375 GM/50 ML BAG IVPB ×4 (03:02→22:33)
[2022-09-17 06:00] VITALS: BP 131/78; PULSE 72; RESP 16; TEMP 36.6; O2SAT 98
[2022-09-17 06:40] LABS: Basophils Percent Auto 0.3 % (0.2-1.2); Eosinophils Absolute Auto 0.5 K/mm3 (0-0.3); Hematocrit 38.8 % (42.0-52.0); Hemoglobin 13.2 g/dL (14.0-18.0); Lymphocytes Absolute Auto 1.01 K/mm3 (0.9-3.2); Lymphocytes Percent Auto 10.5 % (18.3-44.2); Mean Corpuscular Hemoglobin 32.8 pg (26-34); Mean Corpuscular Volume 96.3 fl (80-100); Mean Platelet Volume 9.5 fl (7.4-10.4); Monocytes Absolute Auto 0.8 K/mm3 (0.1-0.6); Monocytes Percent Auto 8.4 % (2.6-8.5); Neutrophils Absolute Auto 7.2 K/mm3 (1.3-6.7); Neutrophils Percent Auto 74.8 % (45.5-73.1); Platelet Count Result 223 k/mm3 (150-375); Red Blood Count 4.03 M/mm3 (4.6-6.20); Red Cell Distribution Width 11.6 % (11.5-14.5); White Blood Count 9.7 K/mm3 (4.5-10.0)
--- NOTE | 2022-09-17 06:52 | WPDGIPROGNO ---
Progress Note: A&P Assessment and Plan (1) Diverticulitis: Code(s): K57.92 - Diverticulitis of intestine, part unspecified, without perforation or abscess without bleeding Status: Acute Assessment and Plan: CT scan which I reviewed reveals: Sigmoid colitis with adjacent localized free air indicating microperforation, source may be diverticulitis or other infectious, inflammatory or ischemic colitis. I did Explain to the patient that in most cases this resolved with antibiotics and bowel rest. I told that occasionally surgery is required but is best to avoid it in the acute phase. I also told that he would need a colonoscopy a few weeks to assess his colon and rule other pathology. white blood count i has now increased to over 9000.. (2) Abnormal CT scan, gastrointestinal tract: Code(s): R93.3 - Abnormal findings on diagnostic imaging of other parts of digestive tract Status: Acute Assessment and Plan: a CT scan done here in our emergency room in 2017 revealed thickening of the transverse colon descending colon sigmoid colon suggestive of ulcerative colitis or infectious colitis. He was apparently sent home on antibiotics but there was no follow-up care. He states that he has not had problems in between these [address] scan shows a large fluid collection in the right lower quadrant and also more free air. The KUB did not show the free air earlier the same day. Plan I explained to him that because of the severity of his diverticulitis and increased free air as well as the fluid collection that he may require surgery. The hope was that antibiotics and bowel rest will help forestall that. I told that there may be a chance that the fluid collection, if becomes walled off, could be drained by Radiology Subjective Date/time seen: 09/17/22 06:52 He is comfortable now but states he had a rough night. He is having more pain localized to the right lower quadrant. This is where on CT scan he has a fluid collection, probably a developing abscess. He also mentioned that he was given intravenous potassium and that it made his lips swell. He states that he cannot tolerate potassium. For example if he would eat a banana he would have diarrhea almost immediately. He also attributes that to the potassium. Exam Const: General: cooperative and healthy appearing Orientation/consciousness: patient oriented x3 HENMT: Head: normal to inspection Ears: hearing grossly normal bilaterally Mouth: Yes Normal oral and palatal mucosa present Eyes: General: appearance normal, both eyes and all related structures Neck: Neck: normal visual inspection Chest: Chest palpation & inspection: normal inspection of the chest Resp: Effort & Inspection: normal respiratory effort Auscultation: clear to auscultation bilaterally Cardio: Rate: regular rate Rhythm: regular rhythm GI: Inspection: normal to inspection GI Palp: Yes abdominal tenderness ( Diffuse, especially lower abdomen), Yes Guarding due to palpation present (GI) ( More in the right lower quadrant now), Yes No hepatosplenomegaly present, Yes Rebound tenderness present and Yes Other GI palpation findings present ( also tender today in the epigastric area) Auscultation: normal bowel sounds Skin: General skin exam: normal color and no jaundice Neuro: General: patient oriented x3 Speech: normal speech Objective Data Vital Signs Vital Signs: Vital Signs - 24 hr 09/16/22 07:54 09/16/22 09:36 09/16/22 13:55 Temperature 36.1 C L Pulse Rate 69 Respiratory Rate 20 Blood Pressure 133/82 Pulse Oximetry 100 98 Oxygen Delivery Room Air Room Air 09/16/22 20:00 09/16/22 22:00 Temperature 36.2 C L Pulse Rate 64 Respiratory Rate 20 Blood Pressure 126/88 Pulse Oximetry 98 Oxygen Delivery Room Air Intake/Output Intake/Output: Intake & Output 09/14/22 09/15/22 09/16/22 09/17/22 23:59 23:59 23:59 23:59 Intake Total 4280
[2022-09-17 06:59] LABS: Alanine Aminotransferase 23 U/L (6-50); Albumin Level 3.1 g/dL (3.5-5.1); Alkaline Phosphatase 73 U/L (38-126); Anion Gap 9 mmol/L (8-16); Aspartate Amino Transferase 21 U/L (17-59); Bilirubin,Total 0.7 mg/dL (0.2-1.3); Blood Urea Nitrogen 4 mg/dL (9-20); Calcium 7.9 mg/dL (8.4-10.2); Carbon Dioxide 21 mmol/L (22-30); Chloride 103 mmol/L (98-107); Estimated CRCL calculation 86 ml/min; Estimated Glomerular Filt Rate > 60; Glucose 98 mg/dL (65-110); Potassium 3.6 mmol/L (3.4-5.0); Sodium 133 mmol/L (137-145)
--- NOTE | 2022-09-17 10:03 | PM.IMPN ---
Progress Note: A&P Assessment and Plan (1) Colitis: Code(s): K52.9 - Noninfective gastroenteritis and colitis, unspecified Status: Acute Assessment and Plan: diverticulitis vs colitis with microperf, cont IV abx, LA 0.6, zosyn started 09/12, gent added 09/16 x 1 appreciate surgery consult, conservative management ADAT, ibuprofen with morphine per surgery recs 09/17: slightly worsening, defer management to surgery consult, leuk slightly trending up, no fevers, no left shift, check CRP/PCT and trend, cont zosyn, add flagyl if CRP/PCT indicate or fevers develop (2) Dehydration: Code(s): E86.0 - Dehydration Status: Acute Assessment and Plan: cont IVF Plan Full Code DVT prophylaxis with SCDs Subjective Date/time seen: 09/17/22 10:03 Interval history: 57-year-old male with history of GERD presenting with abdominal pain and found to have diverticulitis with micro perforation noted. No overnight events noted. No chest pain or shortness of breath. No nausea, vomiting or diarrhea. No fevers or chills. Pain continues. Review of Systems Review of Systems: 12 point review of systems was assessed and was negative except as noted in the HPI Exam Narrative: General: No acute distress, alert and oriented per baseline HEENT: Atraumatic, normocephalic, mucous membranes moist CV: Regular rate and rhythm, S1, S2 Lungs: Clear to auscultation bilaterally, no rales or crackles noted, no wheezes, good air entry Abdomen: Soft, TTP RLQ, no rebounding, no guarding Extremities: Normal to inspection Skin: No rashes noted, no lesions or wounds seen Psych: Euthymic, appropriate affect Objective Data Vital Signs Vital Signs: Vital Signs - 24 hr 09/16/22 13:55 09/16/22 20:00 09/16/22 22:00 Temperature 97.0 F L 97.2 F L Pulse Rate 69 64 Respiratory Rate 20 20 Blood Pressure 133/82 126/88 Pulse Oximetry 98 98 Oxygen Delivery Room Air 09/17/22 06:00 Temperature 97.9 F Pulse Rate 72 Respiratory Rate 16 Blood Pressure 131/78 Pulse Oximetry 98 Oxygen Delivery Intake/Output Intake/Output: Intake & Output 06/02/23 06/03/23 06/04/23 06/05/23 23:59 23:59 23:59 23:59 Intake Total 4280 3079.375 2034.375 50 Output Total 800 519 948 3199 Balance 3480 2554.375 1784.375 -1150 Meds/Results Medications: Active Medications Generic Name Dose Route Start Last Admin Trade Name Freq PRN Reason Stop Dose Admin Piperacillin/Tazobactam/Dextrose 3.375 gm in 50 mls @ 100 mls/hr 09/12/22 21:00 09/17/22 09:55 Zosyn 3.375 Gm/Ns 50 Ml IVPB 100 mls/hr Q6H CARL Administration Ibuprofen 800 mg in 200 mls @ 400 mls/hr 09/16/22 15:08 Caldolor 800 Mg/200 Ml IVPB Q6H PRN Pain Rated 1-3 Dextrose/Sodium Chloride 1,000 mls @ 80 mls/hr 09/16/22 20:40 09/16/22 21:32 Dextrose 5% Sodium Chloride 0.9% IV CONT 80 mls/hr .[id number] CARL Administration Morphine Sulfate 2 mg 09/14/22 19:37 09/15/22 16:41 Morphine Sulfate (*Crx) 2 Mg/Ml Inj IV PUSH 2 mg Q2H PRN Administration Pain Rated 4-6 Morphine Sulfate 4 mg 09/14/22 19:37 09/17/22 06:06 Morphine Sulfate (*Crx) 4 Mg/Ml Inj IV PUSH 4 mg Q2H PRN Administration Pain Rated 7-10 Ondansetron HCl 4 mg 09/12/22 16:10 09/16/22 02:17 Ondansetron Inj 4 Mg/2 Ml Vial IV PUSH 4 mg Q4H PRN Administration Nausea Radiology Results: ITS Impressions Abdomen X-Ray 09/14/22 16:23 IMPRESSION: 1. No radiographic correlate for the patient's symptoms. Abdomen/Pelvis CT 09/14/22 20:10 IMPRESSION: 1. Sigmoid diverticulitis with progression of associated bowel perforation now with significantly increased free intraperitoneal gas extending into the upper abdomen and a 4.7 x 2.3 x 3.0 cm loculated fluid collection in the right lower quadrant which remains without a clearly defined organized peripheral wall. Labs Labs: Laboratory Results - l
[2022-09-17] MEDS: MORPHINE SULFATE (*CRX) 2 MG/ML INJ IV PUSH (10:38)
[2022-09-17 10:43] LABS: Procalcitonin 0.2 ng/mL
[2022-09-17] MEDS: DEXTROSE 5%/0.9% SOD CHL 1,000 ML 80 ML IV CONT (12:07)
[2022-09-17] MEDS: diphenhydrAMINE HCl INJ 50 MG/ML VIAL 25 MG IV PUSH (12:07)
[2022-09-17 13:14] LABS: INR 1.1; Prothrombin Time 14.4 Seconds (11.1-14.7)
[2022-09-17 13:15] LABS: Partial Thromboplastin Time 30.8 SECONDS (22.3-36.8)
[2022-09-17 14:00] VITALS: BP 145/86; PULSE 72; RESP 18; TEMP 37.1; O2SAT 99
--- NOTE | 2022-09-17 15:05 | PM.PNGS ---
Progress Note: A&P Assessment and Plan (1) Diverticulitis of colon with perforation: Code(s): K57.20 - Diverticulitis of large intestine with perforation and abscess without bleeding Status: Acute Assessment and Plan: overall improved, cont clears, cont IV abx (2) Intra-abdominal abscess: Code(s): K65.1 - Peritoneal abscess Status: Acute Assessment and Plan: will get CT guided perc drainage Subjective Subjective Date/Time Seen: 09/17/22 15:05 Interval history: feels better overall but still c significant RLQ pain, braydon clears Review of Systems Review of Systems: All systems reviewed & are unremarkable except as noted in HPI and below Exam Const: General: cooperative, acute distress mild and uncomfortable Resp: Auscultation: clear to auscultation bilaterally Cardio: Rate: regular rate Rhythm: regular rhythm GI: Inspection: normal to inspection and distended GI Palp: Yes abdominal tenderness, Yes Soft to palpation, Yes Tenderness to palpation present (GI), No Guarding due to palpation present (GI) and No Rigid due to palpation Objective Data Vital Signs Vital Signs: Vital Signs - 24 hr 09/16/22 20:00 09/16/22 22:00 09/17/22 06:00 Temperature 36.2 C L 36.6 C Pulse Rate 64 72 Respiratory Rate 20 16 Blood Pressure 126/88 131/78 Pulse Oximetry 98 98 Oxygen Delivery Room Air 09/17/22 08:00 09/17/22 14:00 Temperature 37.1 C Pulse Rate 72 Respiratory Rate 18 Blood Pressure 145/86 H Pulse Oximetry 99 Oxygen Delivery Room Air Intake/Output Intake/Output: Intake & Output 09/14/22 09/15/22 09/16/22 09/17/22 23:59 23:59 23:59 23:59 Intake Total 4280 3079.375 2034.375 1050 Output Total 800 791 307 3345 Balance 3480 2554.375 1784.375 -150 Meds/Results Medications: Active Medications Generic Name Dose Route Start Last Admin Trade Name Freq PRN Reason Stop Dose Admin Piperacillin/Tazobactam/Dextrose 3.375 gm in 50 mls @ 100 mls/hr 09/12/22 21:00 09/17/22 09:55 Zosyn 3.375 Gm/Ns 50 Ml IVPB 100 mls/hr Q6H CARL Administration Ibuprofen 800 mg in 200 mls @ 400 mls/hr 09/16/22 15:08 Caldolor 800 Mg/200 Ml IVPB Q6H PRN Pain Rated 1-3 Dextrose/Sodium Chloride 1,000 mls @ 80 mls/hr 09/16/22 20:40 09/17/22 12:07 Dextrose 5% Sodium Chloride 0.9% IV CONT 80 mls/hr .[id number] CARL Administration Morphine Sulfate 2 mg 09/14/22 19:37 09/17/22 10:38 Morphine Sulfate (*Crx) 2 Mg/Ml Inj IV PUSH 2 mg Q2H PRN Administration Pain Rated 4-6 Morphine Sulfate 4 mg 09/14/22 19:37 09/17/22 06:06 Morphine Sulfate (*Crx) 4 Mg/Ml Inj IV PUSH 4 mg Q2H PRN Administration Pain Rated 7-10 Ondansetron HCl 4 mg 09/12/22 16:10 09/16/22 02:17 Ondansetron Inj 4 Mg/2 Ml Vial IV PUSH 4 mg Q4H PRN Administration Nausea Radiology Results: ITS Impressions Abdomen X-Ray 09/14/22 16:23 IMPRESSION: 1. No radiographic correlate for the patient's symptoms. Abdomen/Pelvis CT 09/14/22 20:10 IMPRESSION: 1. Sigmoid diverticulitis with progression of associated bowel perforation now with significantly increased free intraperitoneal gas extending into the upper abdomen and a 4.7 x 2.3 x 3.0 cm loculated fluid collection in the right lower quadrant which remains without a clearly defined organized peripheral wall. Catheter Placement CT 09/17/22 14:29 IMPRESSION: 1. Successful CT-guided perisigmoid abscess drainage. 2. 9 mL opaque, vera fluid was sent for aerobic and anaerobic cultures. Labs Labs: Laboratory Results - last 24 hr 09/17/22 09/17/22 09/17/22 05:57 05:59 12:46 WBC 9.7 RBC 4.03 L Hgb 13.2 L Hct 38.8 L MCV 96.3 MCH 32.8 MCHC 34.0 RDW 11.6 Plt Count 223 MPV 9.5 Immature Gran % (Auto) 1.0 H Neut % (Auto) 74.8 H Lymph % (Auto) 10.5 L [place] % (Auto) 8.4 Eos % (Auto) 5.0 H Baso % (Auto) 0.3 Lymph # (Au
[2022-09-17 19:55] VITALS: PULSE 72; RESP 18; O2SAT 99
[2022-09-17 21:44] VITALS: BP 156/92; PULSE 75; RESP 14; TEMP 36.4; O2SAT 99
[2022-09-17] MEDS: ONDANSETRON INJ 4 MG/2 ML VIAL IV PUSH (22:38)
[2022-09-18] MEDS: PIPERACILLN/TAZ 3.375GM/NS50ML 3.375 GM/50 ML BAG IVPB ×4 (02:59→22:19)
[2022-09-18] MEDS: DEXTROSE 5%/0.9% SOD CHL 1,000 ML 80 ML IV CONT ×2 (03:05→22:19)
[2022-09-18] MEDS: MORPHINE SULFATE (*CRX) 4 MG/ML INJ IV PUSH ×2 (03:10→06:32)
[2022-09-18 05:55] VITALS: BP 122/74; PULSE 68; RESP 16; TEMP 36.3; O2SAT 97
[2022-09-18 08:02] LABS: Basophils Percent Auto 0.3 % (0.2-1.2); Eosinophils Absolute Auto 0.3 K/mm3 (0-0.3); Eosinophils Percent Auto 4.2 % (0-4.4); Hematocrit 39.1 % (42.0-52.0); Hemoglobin 13.5 g/dL (14.0-18.0); Immature Granulocyte Absolute 0.11 K/mm3 (0.00-0.031); Immature Granulocyte Percent A 1.8 % (0-0.5); Lymphocytes Absolute Auto 1.04 K/mm3 (0.9-3.2); Lymphocytes Percent Auto 16.6 % (18.3-44.2); Mean Corpuscular HGB Conc 34.5 g/dl (32-36); Mean Corpuscular Hemoglobin 33.2 pg (26-34); Mean Corpuscular Volume 96.1 fl (80-100); Mean Platelet Volume 9.4 fl (7.4-10.4); Monocytes Absolute Auto 0.3 K/mm3 (0.1-0.6); Monocytes Percent Auto 4.6 % (2.6-8.5); Neutrophils Absolute Auto 4.5 K/mm3 (1.3-6.7); Neutrophils Percent Auto 72.5 % (45.5-73.1); Platelet Count Result 276 k/mm3 (150-375); Red Blood Count 4.07 M/mm3 (4.6-6.20); Red Cell Distribution Width 11.7 % (11.5-14.5); White Blood Count 6.3 K/mm3 (4.5-10.0)
[2022-09-18] MEDS: diphenhydrAMINE HCl CAP 25 MG CAPSULE PO (08:09)
[2022-09-18 08:12] LABS: Alanine Aminotransferase 24 U/L (6-50); Albumin Level 2.9 g/dL (3.5-5.1); Alkaline Phosphatase 64 U/L (38-126); Anion Gap 3 mmol/L (8-16); Aspartate Amino Transferase 26 U/L (17-59); Bilirubin,Total 0.6 mg/dL (0.2-1.3); Blood Urea Nitrogen 3 mg/dL (9-20); Calcium 8.2 mg/dL (8.4-10.2); Carbon Dioxide 29 mmol/L (22-30); Chloride 104 mmol/L (98-107); Estimated CRCL calculation 86 ml/min; Estimated Glomerular Filt Rate > 60; Glucose 117 mg/dL (65-110); Potassium 3.1 mmol/L (3.4-5.0); Sodium 136 mmol/L (137-145)
--- NOTE | 2022-09-18 10:38 | PM.PNGS ---
Progress Note: A&P Assessment and Plan (1) Diverticulitis of colon with perforation: Code(s): K57.20 - Diverticulitis of large intestine with perforation and abscess without bleeding Status: Acute Assessment and Plan: exam improved, cont IV abx, will start clears (2) Intra-abdominal abscess: Code(s): K65.1 - Peritoneal abscess Status: Acute Assessment and Plan: cont drain and abx Subjective Subjective Date/Time Seen: 09/18/22 10:38 Interval history: feels much better after perc drainage yesterday, pain/pressure significantly decreased Review of Systems Review of Systems: All systems reviewed & are unremarkable except as noted in HPI and below Exam Const: General: cooperative, comfortable and no acute distress Resp: Auscultation: clear to auscultation bilaterally Cardio: Rate: regular rate Rhythm: regular rhythm GI: Inspection: normal to inspection and non-distended GI Palp: Yes abdominal tenderness, Yes Soft to palpation, Yes Tenderness to palpation present (GI), No Guarding due to palpation present (GI) and No Rigid due to palpation Other: drain c s/s drainage Objective Data Vital Signs Vital Signs: Vital Signs - 24 hr 09/17/22 14:00 09/17/22 19:55 09/17/22 21:44 Temperature 37.1 C 36.4 C Pulse Rate 72 72 75 Respiratory Rate 18 18 14 Blood Pressure 145/86 H 156/92 H Pulse Oximetry 99 99 99 Oxygen Delivery Room Air 09/18/22 05:55 Temperature 36.3 C L Pulse Rate 68 Respiratory Rate 16 Blood Pressure 122/74 Pulse Oximetry 97 Oxygen Delivery Intake/Output Intake/Output: Intake & Output 09/15/22 09/16/22 09/17/22 09/18/22 23:59 23:59 23:59 23:59 Intake Total 3079.375 2034.375 1200 1050 Output Total 291 247 1690 250 Balance 2554.375 1784.375 -325 800 Meds/Results Medications: Active Medications Generic Name Dose Route Start Last Admin Trade Name Freq PRN Reason Stop Dose Admin Diphenhydramine HCl 25 mg 09/18/22 08:04 09/18/22 08:09 Diphenhydramine Hcl Cap 25 Mg Capsule PO 25 mg Q6H PRN Administration Itching Piperacillin/Tazobactam/Dextrose 3.375 gm in 50 mls @ 100 mls/hr 09/12/22 21:00 09/18/22 03:30 Zosyn 3.375 Gm/Ns 50 Ml IVPB Infused Q6H CARL Infusion Ibuprofen 800 mg in 200 mls @ 400 mls/hr 09/16/22 15:08 Caldolor 800 Mg/200 Ml IVPB Q6H PRN Pain Rated 1-3 Dextrose/Sodium Chloride 1,000 mls @ 80 mls/hr 09/16/22 20:40 09/18/22 03:05 Dextrose 5% Sodium Chloride 0.9% IV CONT 80 mls/hr .[id number] CARL Administration Morphine Sulfate 2 mg 09/14/22 19:37 09/17/22 10:38 Morphine Sulfate (*Crx) 2 Mg/Ml Inj IV PUSH 2 mg Q2H PRN Administration Pain Rated 4-6 Morphine Sulfate 4 mg 09/14/22 19:37 09/18/22 06:32 Morphine Sulfate (*Crx) 4 Mg/Ml Inj IV PUSH 4 mg Q2H PRN Administration Pain Rated 7-10 Ondansetron HCl 4 mg 09/12/22 16:10 09/17/22 22:38 Ondansetron Inj 4 Mg/2 Ml Vial IV PUSH 4 mg Q4H PRN Administration Nausea Radiology Results: ITS Impressions Abdomen X-Ray 09/14/22 16:23 IMPRESSION: 1. No radiographic correlate for the patient's symptoms. Abdomen/Pelvis CT 09/14/22 20:10 IMPRESSION: 1. Sigmoid diverticulitis with progression of associated bowel perforation now with significantly increased free intraperitoneal gas extending into the upper abdomen and a 4.7 x 2.3 x 3.0 cm loculated fluid collection in the right lower quadrant which remains without a clearly defined organized peripheral wall. Catheter Placement CT 09/17/22 14:29 IMPRESSION: 1. Successful CT-guided perisigmoid abscess drainage. 2. 9 mL opaque, vera fluid was sent for aerobic and anaerobic cultures. Labs Labs: Laboratory Results - last 24 hr 09/17/22 09/17/22 09/18/22 05:57 12:46 07:38 WBC 6.3 RBC 4.07 L Hgb 13.5 L Hct 39.1 L MCV 96.1 MCH 33.2 MCHC 34.5 RDW 11.7 Plt Count 276 MPV
[2022-09-18] MEDS: MORPHINE SULFATE (*CRX) 2 MG/ML INJ IV PUSH ×2 (10:57→15:30)
--- NOTE | 2022-09-18 11:50 | PM.IMPN ---
Progress Note: A&P Assessment and Plan (1) Colitis: Code(s): K52.9 - Noninfective gastroenteritis and colitis, unspecified Status: Acute Assessment and Plan: diverticulitis vs colitis with microperf, cont IV abx, LA 0.6, zosyn started 09/12, gent added 09/16 x 1 appreciate surgery consult, conservative management ADAT, ibuprofen with morphine per surgery recs 09/17: slightly worsening, defer management to surgery consult, leuk slightly trending up, no fevers, no left shift, check CRP/PCT and trend, cont zosyn, add flagyl if CRP/PCT indicate or fevers develop 09/18: CRP 20, PCT 0.2, afebrile, cont zosyn, monitor, s/p CT guided abscess drainage 09/17, f/u abscess culture (2) Dehydration: Code(s): E86.0 - Dehydration Status: Acute Assessment and Plan: cont IVF (3) Hypokalemia: Code(s): E87.6 - Hypokalemia Status: Acute Assessment and Plan: replace and recheck Plan Full Code DVT prophylaxis with SCDs Subjective Date/time seen: 09/18/22 11:50 Interval history: 57-year-old male with history of GERD presenting with abdominal pain and found to have diverticulitis with micro perforation noted. No overnight events noted. No chest pain or shortness of breath. No nausea, vomiting. No fevers or chills. Pain improved, + flatus, + BM, diarrhea. Tolerating CLD. Review of Systems Review of Systems: 12 point review of systems was assessed and was negative except as noted in the HPI Exam Narrative: General: No acute distress, alert and oriented per baseline HEENT: Atraumatic, normocephalic, mucous membranes moist CV: Regular rate and rhythm, S1, S2 Lungs: Clear to auscultation bilaterally, no rales or crackles noted, no wheezes, good air entry Abdomen: Soft, TTP RLQ, no rebounding, no guarding, drain in place, small amount of bile in bag Extremities: Normal to inspection Skin: No rashes noted, no lesions or wounds seen Psych: Euthymic, appropriate affect Objective Data Vital Signs Vital Signs: Vital Signs - 24 hr 09/17/22 14:00 09/17/22 19:55 09/17/22 21:44 Temperature 98.8 F 97.6 F Pulse Rate 72 72 75 Respiratory Rate 18 18 14 Blood Pressure 145/86 H 156/92 H Pulse Oximetry 99 99 99 Oxygen Delivery Room Air 09/18/22 05:55 09/18/22 08:00 Temperature 97.4 F L Pulse Rate 68 Respiratory Rate 16 Blood Pressure 122/74 Pulse Oximetry 97 Oxygen Delivery Room Air Intake/Output Intake/Output: Intake & Output 09/15/22 09/16/22 09/17/22 09/18/22 23:59 23:59 23:59 23:59 Intake Total 3079.375 2034.375 1200 1100 Output Total 635 960 4171 250 Balance 2554.375 1784.375 -325 850 Meds/Results Medications: Active Medications Generic Name Dose Route Start Last Admin Trade Name Freq PRN Reason Stop Dose Admin Diphenhydramine HCl 25 mg 09/18/22 08:04 09/18/22 08:09 Diphenhydramine Hcl Cap 25 Mg Capsule PO 25 mg Q6H PRN Administration Itching Piperacillin/Tazobactam/Dextrose 3.375 gm in 50 mls @ 100 mls/hr 09/12/22 21:00 09/18/22 10:19 Zosyn 3.375 Gm/Ns 50 Ml IVPB Infused Q6H CARL Infusion Ibuprofen 800 mg in 200 mls @ 400 mls/hr 09/16/22 15:08 Caldolor 800 Mg/200 Ml IVPB Q6H PRN Pain Rated 1-3 Dextrose/Sodium Chloride 1,000 mls @ 80 mls/hr 09/16/22 20:40 09/18/22 03:05 Dextrose 5% Sodium Chloride 0.9% IV CONT 80 mls/hr .[id number] CARL Administration Morphine Sulfate 2 mg 09/14/22 19:37 09/18/22 10:57 Morphine Sulfate (*Crx) 2 Mg/Ml Inj IV PUSH 2 mg Q2H PRN Administration Pain Rated 4-6 Morphine Sulfate 4 mg 09/14/22 19:37 09/18/22 06:32 Morphine Sulfate (*Crx) 4 Mg/Ml Inj IV PUSH 4 mg Q2H PRN Administration Pain Rated 7-10 Ondansetron HCl 4 mg 09/12/22 16:10 09/17/22 22:38 Ondansetron Inj 4 Mg/2 Ml Vial IV PUSH 4 mg Q4H PRN Administration Nausea Radiology Results: ITS Impressions Abdomen X-Ray
[2022-09-18] MEDS: POTASSIUM CHLORIDE INJ 40 MEQ in SODIUM CHLORIDE 0.9% IV 500 ML 130 MEQ IVPB (12:15)
[2022-09-18 14:25] VITALS: BP 156/96; PULSE 74; RESP 18; TEMP 36.4; O2SAT 99
[2022-09-18] MEDS: HYDROcodone/acetaminophen (*CRX) 7.5-325 MG TABLET 1 TAB PO ×2 (18:24→23:10)
[2022-09-18 21:31] VITALS: BP 113/67; PULSE 55; RESP 14; TEMP 36.3; O2SAT 98
[2022-09-18 22:38] VITALS: O2SAT 98
[2022-09-19] MEDS: HYDROcodone/acetaminophen (*CRX) 7.5-325 MG TABLET 1 TAB PO ×3 (03:10→13:40)
[2022-09-19] MEDS: PIPERACILLN/TAZ 3.375GM/NS50ML 3.375 GM/50 ML BAG IVPB ×3 (03:11→14:00)
[2022-09-19 06:00] VITALS: BP 117/65; PULSE 55; RESP 14; TEMP 36.1; O2SAT 98
[2022-09-19 06:36] LABS: Basophils Absolute Auto 0.1 K/mm3 (0.0-0.1); Basophils Percent Auto 0.9 % (0.2-1.2); Eosinophils Absolute Auto 0.3 K/mm3 (0-0.3); Eosinophils Percent Auto 5.6 % (0-4.4); Hematocrit 36.5 % (42.0-52.0); Hemoglobin 12.1 g/dL (14.0-18.0); Immature Granulocyte Percent A 1.8 % (0-0.5); Lymphocytes Absolute Auto 1.26 K/mm3 (0.9-3.2); Lymphocytes Percent Auto 22.1 % (18.3-44.2); Mean Corpuscular HGB Conc 33.2 g/dl (32-36); Mean Corpuscular Hemoglobin 31.8 pg (26-34); Mean Corpuscular Volume 96.1 fl (80-100); Mean Platelet Volume 9.3 fl (7.4-10.4); Monocytes Absolute Auto 0.4 K/mm3 (0.1-0.6); Monocytes Percent Auto 6.5 % (2.6-8.5); Neutrophils Absolute Auto 3.6 K/mm3 (1.3-6.7); Neutrophils Percent Auto 63.1 % (45.5-73.1); Platelet Count Result 295 k/mm3 (150-375); Red Cell Distribution Width 11.9 % (11.5-14.5); White Blood Count 5.7 K/mm3 (4.5-10.0)
[2022-09-19 06:55] LABS: Alanine Aminotransferase 25 U/L (6-50); Albumin Level 2.8 g/dL (3.5-5.1); Alkaline Phosphatase 55 U/L (38-126); Anion Gap 3 mmol/L (8-16); Aspartate Amino Transferase 27 U/L (17-59); Bilirubin,Total 0.5 mg/dL (0.2-1.3); Blood Urea Nitrogen 3 mg/dL (9-20); Carbon Dioxide 31 mmol/L (22-30); Chloride 103 mmol/L (98-107); Estimated CRCL calculation 86 ml/min; Estimated Glomerular Filt Rate > 60; Glucose 104 mg/dL (65-110); Potassium 3.4 mmol/L (3.4-5.0); Sodium 137 mmol/L (137-145)
[2022-09-19] MEDS: POTASSIUM CHLORIDE 20 MEQ TABLET 40 MEQ PO (08:59)
--- NOTE | 2022-09-19 12:55 | PM.PNGS ---
Progress Note: A&P Assessment and Plan (1) Diverticulitis of colon with perforation: Code(s): K57.20 - Diverticulitis of large intestine with perforation and abscess without bleeding Status: Acute Assessment and Plan: much improved, ok to dc home c po abx and low fiber diet, f/u in 2 wks (2) Intra-abdominal abscess: Code(s): K65.1 - Peritoneal abscess Status: Acute Assessment and Plan: CT reviewed and will remove drain prior to dc Subjective Subjective Date/Time Seen: 09/19/22 12:55 Interval history: feels good, braydon diet, +bowel fxn, abd pain largely resolved Review of Systems Review of Systems: All systems reviewed & are unremarkable except as noted in HPI and below Exam Const: General: cooperative, comfortable and no acute distress Resp: Auscultation: clear to auscultation bilaterally Cardio: Rate: regular rate Rhythm: regular rhythm GI: Inspection: normal to inspection and non-distended GI Palp: No abdominal tenderness, Yes Soft to palpation and No Tenderness to palpation present (GI) Objective Data Vital Signs Vital Signs: Vital Signs - 24 hr 09/18/22 14:25 09/18/22 21:31 09/18/22 22:38 Temperature 36.4 C 36.3 C L Pulse Rate 74 55 L Respiratory Rate 18 14 Blood Pressure 156/96 H 113/67 Pulse Oximetry 99 98 98 Oxygen Delivery Room Air 09/19/22 06:00 09/19/22 09:00 Temperature 36.1 C L Pulse Rate 55 L Respiratory Rate 14 Blood Pressure 117/65 Pulse Oximetry 98 Oxygen Delivery Room Air Intake/Output Intake/Output: Intake & Output 09/16/22 09/17/22 09/18/22 09/19/22 23:59 23:59 23:59 23:59 Intake Total 2034.375 1200 3280 800 Output Total 250 1525 265 Balance 1784.375 -325 3015 800 Meds/Results Medications: Active Medications Generic Name Dose Route Start Last Admin Trade Name Freq PRN Reason Stop Dose Admin Hydrocodone Bitart/Acetaminophen 1 tab 09/18/22 15:41 09/19/22 09:00 Hydrocodone/Acetaminophen (*Crx) 7.5-325 Mg Tablet PO 1 tab Q4H PRN Administration Pain Rated 7-10 Diphenhydramine HCl 25 mg 09/18/22 08:04 06/06/23 08:09 Diphenhydramine Hcl Cap 25 Mg Capsule PO 25 mg Q6H PRN Administration Itching Piperacillin/Tazobactam/Dextrose 3.375 gm in 50 mls @ 100 mls/hr 09/12/22 21:00 09/19/22 09:00 Zosyn 3.375 Gm/Ns 50 Ml IVPB 100 mls/hr Q6H CARL Administration Ibuprofen 800 mg in 200 mls @ 400 mls/hr 09/16/22 15:08 Caldolor 800 Mg/200 Ml IVPB Q6H PRN Pain Rated 1-3 Dextrose/Sodium Chloride 1,000 mls @ 80 mls/hr 09/16/22 20:40 09/18/22 22:19 Dextrose 5% Sodium Chloride 0.9% IV CONT 80 mls/hr .[id number] CARL Administration Morphine Sulfate 2 mg 09/14/22 19:37 09/18/22 15:30 Morphine Sulfate (*Crx) 2 Mg/Ml Inj IV PUSH 2 mg Q2H PRN Administration Pain Rated 4-6 Morphine Sulfate 4 mg 09/14/22 19:37 09/18/22 06:32 Morphine Sulfate (*Crx) 4 Mg/Ml Inj IV PUSH 4 mg Q2H PRN Administration Pain Rated 7-10 Ondansetron HCl 4 mg 09/12/22 16:10 09/17/22 22:38 Ondansetron Inj 4 Mg/2 Ml Vial IV PUSH 4 mg Q4H PRN Administration Nausea Radiology Results: ITS Impressions Abdomen X-Ray 09/14/22 16:23 IMPRESSION: 1. No radiographic correlate for the patient's symptoms. Catheter Placement CT 09/17/22 14:29 IMPRESSION: 1. Successful CT-guided perisigmoid abscess drainage. 2. 9 mL opaque, vera fluid was sent for aerobic and anaerobic cultures. Abdomen/Pelvis CT 09/19/22 12:39 IMPRESSION: 1. Acute sigmoid diverticulitis with perforation and percutaneous drain in expected position. No residual drainable abscess. 2. Acute appendicitis. Note that the appendix is surrounded by the perisigmoid inflammation. Labs Labs: Laboratory Results - last 24 hr 09/19/22 06:11 WBC 5.7 RBC 3.80 L Hgb 12.1 L Hct 36.5 L MCV 96.1 MCH 31.8 MCHC 33.2 RDW 11.9 Plt Count 295 MPV 9.3 Immature
[2022-09-19 14:00] VITALS: BP 124/79; PULSE 55; RESP 15; TEMP 35.5; O2SAT 96
--- NOTE | 2022-09-19 14:19 | PC.NURSE ---
Pt is A&O4 male who participates and contributes in plan of care. Pt reports pain in the abdomen that is being treated with [place]. Pt denies any other needs at this time. Pt had perc drain that was removed by Dr. King after reviewing CT. Pt has had no output from drain for me. Pt reports that he was told he would discharge today. Pt receiving IV abx and tolerating well. Will continue to monitor pt.
--- NOTE | 2022-09-19 14:20 | PM.IMPN ---
Progress Note: A&P Assessment and Plan (1) Colitis: Code(s): K52.9 - Noninfective gastroenteritis and colitis, unspecified Status: Acute Assessment and Plan: Diverticulitis vs colitis with microperf. Started on IV abx: zosyn started 09/12, gent added 09/16 x 1. Lactic acid is 0.6. White count was 10.8K but since has remained normal. Appreciate surgery consult, conservative management ADAT, ibuprofen with morphine per surgery recs 09/17: CRP 20, PCT 0.2. slightly worsening, defer management to surgery consult, leuk slightly trending up, no fevers, no left shift, check CRP/PCT and trend, cont zosyn, add flagyl if CRP/PCT indicate or fevers develop 09/18: Afebrile, cont zosyn, monitor, s/p CT guided abscess drainage 09/17, f/u abscess culture 09/19: Repeat CT scan showing acute sigmoid diverticulitis with perforation as well as acute appendicitis with the appendix surrounded by perisigmoid inflammation. Patient remains on clear liquid diet general surgery felt patient could be advanced to low-fiber diet and be discharged home. The drain was removed earlier today. (2) Dehydration: Code(s): E86.0 - Dehydration Status: Acute Assessment and Plan: Resolved. Stop IV fluids. (3) Hypokalemia: Code(s): E87.6 - Hypokalemia Status: Acute Assessment and Plan: Potassium low again. Replace and recheck Plan Full Code DVT prophylaxis with SCDs Subjective Date/time seen: 09/19/22 14:20 Interval history: 57yo male with history of GERD presenting with abdominal pain and found to have diverticulitis with micro perforation. Assuming care. Chart reviewed. Pain better. BM x3 today with flatus. No hematochezia. No CP or SOB Exam Narrative: AF 97.0 117/65 55 14 98% ra Gen - NARD Chest - CTA bilaterally, nml RR CV - RRR S1/S2 Abd - Soft, ND, +BS, minimal lower abd tenderness Ext - No pedal edema Psych - Nml mood and affect Skin - Warm and dry Objective Data Vital Signs Vital Signs: Vital Signs - 24 hr 09/18/22 14:25 09/18/22 21:31 09/18/22 22:38 Temperature 97.6 F 97.3 F L Pulse Rate 74 55 L Respiratory Rate 18 14 Blood Pressure 156/96 H 113/67 Pulse Oximetry 99 98 98 Oxygen Delivery Room Air 09/19/22 06:00 09/19/22 09:00 Temperature 97.0 F L Pulse Rate 55 L Respiratory Rate 14 Blood Pressure 117/65 Pulse Oximetry 98 Oxygen Delivery Room Air Intake/Output Intake/Output: Intake & Output 09/16/22 09/17/22 09/18/22 09/19/22 23:59 23:59 23:59 23:59 Intake Total 2034.375 1200 3280 850 Output Total 250 1525 265 Balance 1784.375 -325 3015 850 Meds/Results Medications: Active Medications Generic Name Dose Route Start Last Admin Trade Name Freq PRN Reason Stop Dose Admin Hydrocodone Bitart/Acetaminophen 1 tab 09/18/22 15:41 09/19/22 13:40 Hydrocodone/Acetaminophen (*Crx) 7.5-325 Mg Tablet PO 1 tab Q4H PRN Administration Pain Rated 7-10 Diphenhydramine HCl 25 mg 09/18/22 08:04 09/18/22 08:09 Diphenhydramine Hcl Cap 25 Mg Capsule PO 25 mg Q6H PRN Administration Itching Piperacillin/Tazobactam/Dextrose 3.375 gm in 50 mls @ 100 mls/hr 09/12/22 21:00 09/19/22 14:00 Zosyn 3.375 Gm/Ns 50 Ml IVPB 100 mls/hr Q6H CARL Administration Ibuprofen 800 mg in 200 mls @ 400 mls/hr 09/16/22 15:08 Caldolor 800 Mg/200 Ml IVPB Q6H PRN Pain Rated 1-3 Dextrose/Sodium Chloride 1,000 mls @ 80 mls/hr 09/16/22 20:40 09/18/22 22:19 Dextrose 5% Sodium Chloride 0.9% IV CONT 80 mls/hr .[id number] CARL Administration Morphine Sulfate 2 mg 09/14/22 19:37 09/18/22 15:30 Morphine Sulfate (*Crx) 2 Mg/Ml Inj IV PUSH 2 mg Q2H PRN Administration Pain Rated 4-6 Morphine Sulfate 4 mg 09/14/22 19:37 09/18/22 06:32 Morphine Sulfate (*Crx) 4 Mg/Ml Inj IV PUSH 4 mg Q2H PRN Administration Pain Rated 7-10 Ondansetron HCl 4 mg 09/12/22 16:10 09/17/22 22:38 Ondansetron
--- NOTE | 2022-09-19 14:34 | PM.DS ---
DS: Admitting Diagnosis Discharge Date 09/19/22 Admitting Diagnosis Abdominal pain DS: Discharge Diagnosis Discharge Diagnosis (1) Diverticulitis of colon with perforation: Code(s): K57.20 - Diverticulitis of large intestine with perforation and abscess without bleeding Status: Acute (2) Colitis: Code(s): K52.9 - Noninfective gastroenteritis and colitis, unspecified Status: Acute (3) Intra-abdominal abscess: Code(s): K65.1 - Peritoneal abscess Status: Acute (4) Perforation bowel: Code(s): K63.1 - Perforation of intestine (nontraumatic) Status: Acute (5) Dehydration: Code(s): E86.0 - Dehydration Status: Acute (6) Hypokalemia: Code(s): E87.6 - Hypokalemia Status: Acute DS: Summary Hospital Course Reason for hospitalization: 57-year-old male presents with complaints of abdominal pain. Please see H&P for details. Hospital Course: Patient presents with complaints of abdominal pain. CT of the abdomen and pelvis showed sigmoid colitis with adjacent localized free air indicating micro perforation. Lactic acid was 0.6. White count was 10.8K but normalized on repeat. Patient was started on Zosyn. He did receive 1 dose of gentamicin. General surgery was consulted. Repeat CT scan showed sigmoid diverticulitis with progression of associated bowel perforation with significantly increased free intraperitoneal air extending into the upper abdomen as well as a 4.7 cm loculated fluid collection the right lower quadrant. A drain was placed. CRP 20, PCT 0.2. He had clinical improvement. He remained afebrile. He is having normal bowel movements. Abdominal pain is decreased. He was started on clear liquid diet. Repeat CT scan today showing acute sigmoid diverticulitis with perforation as well as acute appendicitis with the appendix surrounded by perisigmoid inflammation.? General surgery felt patient could be advanced to low-fiber diet and be discharged home.? The drain was removed earlier today. He overall did well and was able to be discharged on 09/19/22. Status at Discharge Cognitive/behavioral status at discharge: Stable Time Spent with Patient Time attestation: Total time spent providing and/or coordinating discharge services: 35 minutes Time spent: Greater than 30 minutes Exam Narrative: AF 97.0 117/65 55 14 98% ra Gen - NARD Chest - CTA bilaterally, nml RR CV - RRR S1/S2 Abd - Soft, ND, +BS, minimal lower abd tenderness Ext - No pedal edema Psych - Nml mood and affect Skin - Warm and dry DS: Data Data Completed and Pending Labs on day of discharge: Labs from last 24 hours 09/19/22 06:11 WBC 5.7 RBC 3.80 L Hgb 12.1 L Hct 36.5 L MCV 96.1 MCH 31.8 MCHC 33.2 RDW 11.9 Plt Count 295 MPV 9.3 Immature Gran % (Auto) 1.8 H Neut % (Auto) 63.1 Lymph % (Auto) 22.1 [place] % (Auto) 6.5 Eos % (Auto) 5.6 H Baso % (Auto) 0.9 Lymph # (Auto) 1.26 [place] # (Auto) 0.4 Eos # (Auto) 0.3 Baso # (Auto) 0.1 Abs Immat Gran (auto) 0.10 H Absolute Neuts (auto) 3.6 Absolute Nucleated RBC 0.0 Nucleated RBC % 0.0 Sodium 137 Potassium 3.4 Chloride 103 Carbon Dioxide 31 H Anion Gap 3 L BUN 3 L Creatinine 0.70 Estim Creat Clear Calc 86 Estimated GFR > 60 Glucose 104 Calcium 8.0 L Total Bilirubin 0.5 AST 27 ALT 25 Alkaline Phosphatase 55 Total Protein 6.0 L Albumin 2.8 L Preliminary micro results at discharge 09/17/22 14:18 Anaerobic Culture - Preliminary Abscess Aerobic Culture - Preliminary Yeast Present Discharge Plan Discharge Attending physician on discharge: Scooby Rosenthal Consulting providers: Lori King; Regan Magallanes Discharging Clinician: Scooby Rosenthal Anticipated Discharge Date/Time: 09/19/22 14:41 Patient Disposition: Home, Self-Care Activity: no straining and as tolerated Diet: other - see discharge instructions Di
== END 2022-09-19 17:00 | disposition home or self-care (01) | DRG 244 ==
LOC: ANHED 14:31 → ANH3MEDSUR 16:48
PROVIDERS: Nurse Practitioner Family; Student in an Organized Health Care Education/Training Program; Surgery; Admitting Provider Family Medicine; Emergency Provider Emergency Medicine; Visit Provider Internal Medicine
DX: K57.20 Diverticulitis of large intestine with perforation and abscess without bleeding (principal); K65.1 Peritoneal abscess; K52.9 Noninfective gastroenteritis and colitis, unspecified; E86.0 Dehydration; E87.6 Hypokalemia
CPT/HCPCS: 36415; 74018; 74176; 74177; 75989; 80048; 80053; 80170; 81001; 83605; 83690; 83735; 84145; 85025; 85027; 85610; 85730; 86140; 87040; 87070; 87075; 87205; 96361; 96365; 96374; 96375; 96376; 99285; A9270; C1729; C1769; G0378; J1170; J1200; J1580; J1741; J1885; J2270; J2405; J2543; J3480; J7030; J7040; J7042; Q9967

== ENCOUNTER 2022-11-10 18:44 | Emergency (ER) | payer SELFPAY ==
--- NOTE | ~2022-11-10 | CT_ITS ---
EXAMINATION: CT abdomen pelvis w con DATE: 11/10/2022 23:39 INDICATION: Left lower quadrant abdominal pain. Recent sigmoid diverticulitis and percutaneous absces s drainage TECHNIQUE: Computed tomography (CT) of the abdomen and pelvis was performed with 100 CC Omnipaque 350 intravenous contrast. Automated exposure control and iterative reconstruction technique were employe d. Exam dose: 319.00 mGy-cm total exam DLP. COMPARISON: 09/19/2022 CT abdomen pelvis FINDINGS: There is mild linear atelectasis or scarring at the base of the lingula and minimal depende nt left lower lobe atelectasis. Normal heart size. No pericardial or pleural effusion. The liver, gallbladder, bile ducts, spleen, pancreas, pancreatic duct, and adrenal glands and kidneys are unremarkable. Normal caliber of the abdominal aorta. No intraperitoneal or retroperitoneal or pelvic mass lesion or adenopathy or ascites is detected. There is thickening of the wall of the sigmoid colon, with multiple sigmoid diverticula. There is pericolic inflammatory fat stranding along the distal descending colon, with adjacent thicke gloria of the anterior and posterior pararenal and lateroconal fascia, with multiple colonic diverticul a in this area, consistent with interval new acute diverticulitis. Very small sliding hiatal hernia. There is thickening of the wall of the mid to distal sigmoid colon: Consistent with enteritis. Interval removal of percutaneous pigtail drainage catheter from the perisigmoid area since 09/19/2022. No residual abscess is noted in this area. Bilateral fat-containing inguinal hernias. 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 Prominent degen erative disc disease at L4-5. Possible avascular necrosis of right femoral head. Consider MR correlation as clinically appropriate. No suspicious osteolytic or osteoblastic lesions are evident. IMPRESSION: New focal acute diverticulitis at the distal descending colon Residual prominent soft tissue thickening of the wall of the sigmoid colon but resolution of sigmoid pericolic abscess and removal of percutaneous abscess drainage catheter since 09/19/2022 Diverticulosis of sigmoid and descending colon Thickening of the wall the mid to distal small bowel likely due to enteritis Possible avascular necrosis of right femoral head Reviewed, dictated and finalized at [facility]. Reviewed, dictated and finalized at [facility]. IMPRESSION: New focal acute diverticulitis at the distal descending colon Residual prominent soft tissue thickening of the wall of the sigmoid colon but resolution of sigmoid pericolic abscess and removal of percutaneous abscess sirisha inage catheter since 09/19/2022 Diverticulosis of sigmoid and descending colon Thickening of the wall the mid to distal small bowel likely due to enteritis Possible avascular necrosis of right femoral head
[2022-11-10 18:51] VITALS: BP 134/91; PULSE 66; RESP 18; TEMP 36.8; O2SAT 99
[2022-11-10 19:07] LABS: Basophils Percent Auto 0.3 % (0.2-1.2); Eosinophils Absolute Auto 0.3 K/mm3 (0-0.3); Eosinophils Percent Auto 2.6 % (0-4.4); Hematocrit 43.4 % (42.0-52.0); Immature Granulocyte Absolute 0.04 K/mm3 (0.00-0.031); Immature Granulocyte Percent A 0.4 % (0-0.5); Lymphocytes Absolute Auto 2.21 K/mm3 (0.9-3.2); Lymphocytes Percent Auto 19.5 % (18.3-44.2); Mean Corpuscular HGB Conc 34.6 g/dl (32-36); Mean Corpuscular Hemoglobin 32.8 pg (26-34); Mean Platelet Volume 9.2 fl (7.4-10.4); Monocytes Absolute Auto 0.9 K/mm3 (0.1-0.6); Monocytes Percent Auto 7.7 % (2.6-8.5); Neutrophils Absolute Auto 7.9 K/mm3 (1.3-6.7); Neutrophils Percent Auto 69.5 % (45.5-73.1); Platelet Count Result 242 k/mm3 (150-375); Red Blood Count 4.57 M/mm3 (4.6-6.20); Red Cell Distribution Width 12.6 % (11.5-14.5); White Blood Count 11.4 K/mm3 (4.5-10.0)
[2022-11-10 19:10] LABS: Appearance Urine Clear (Clear); Bilirubin Urine Negative (Negative); Blood Urine Negative (Negative); Color Urine Yellow (Yellow); Glucose Urine UA Negative (Negative); Ketones Urine Negative (Negative); Leukocyte Esterase Ur Negative LEU/UL (Negative); Nitrate Urine Negative (Negative); Protein Urine Negative (Negative); Specific Grav Ur 1.022 (1.001-1.035); pH Urine 5.5 (5.0-9.0)
[2022-11-10 19:15] LABS: Alanine Aminotransferase 21 U/L (6-50); Albumin Level 4.1 g/dL (3.5-5.1); Alkaline Phosphatase 101 U/L (38-126); Anion Gap 4 mmol/L (8-16); Aspartate Amino Transferase 21 U/L (17-59); Bilirubin,Total 1.1 mg/dL (0.2-1.3); Blood Urea Nitrogen 9 mg/dL (9-20); Calcium 8.7 mg/dL (8.4-10.2); Carbon Dioxide 24 mmol/L (22-30); Chloride 105 mmol/L (98-107); Estimated CRCL calculation 86 ml/min; Estimated Glomerular Filt Rate > 60; Glucose 101 mg/dL (65-110); Lipase 31 U/L (23-300); Potassium 3.4 mmol/L (3.4-5.0); Sodium 133 mmol/L (137-145)
[2022-11-10 19:21] LABS: Add Urine Microscopic? NO
[2022-11-10] MEDS: ONDANSETRON INJ 4 MG/2 ML VIAL IV PUSH (23:01)
[2022-11-10] MEDS: SODIUM CHLORIDE 0.9% IV 1,000 ML 999 ML IV CONT (23:01)
[2022-11-10] MEDS: MORPHINE SULFATE (*CRX) 4 MG/ML INJ IV PUSH (23:01)
--- NOTE | 2022-11-10 23:09 | ED.ABDPAIN ---
HPI - Abdominal Pain General Chief Complaint: Abdominal Pain Stated Complaint: abd pain Time Seen by Provider: 11/10/22 22:18 Source: patient and old records reviewed Mode of arrival: ambulatory Limitations: no limitations History of Present Illness HPI narrative: Patient is a 57-year-old male who presents to the ED with report of left lower abdominal pain. Patient reports he was admitted to the hospital at the end of August with diverticulitis with microperforation. He was evaluated by general surgery at that time, improved w/ abx. He was also discharged on antibiotics and has since finished these. He reports on , he developed recurrent pain in his left lower abdomen. He states pain feels similar to what he experienced with his previous admission, but less severe. He also reports having frequent diarrhea and nausea, denies vomiting, fevers. Denies urinary symptoms. Related Data Allergies Allergy/AdvReac Type Severity Reaction Status Date / Time meperidine AdvReac Intermediate Vomiting Verified 10/03/22 10:42 Review of Systems Review of Systems: CONSTITUTIONAL: Denies fever, chills, or sweats. CARDIOVASCULAR: Denies chest pain. RESPIRATORY: Denies dyspnea. GASTROINTESTINAL: See HPI. GENITOURINARY: Denies dysuria or hematuria. SKIN: Denies rash or itching. MUSCULOSKELETAL: Denies back pain, joint pain, or myalgia. All systems reviewed & are unremarkable except as noted in HPI and below PMFSH Past Medical History Medical History Colitis Surgical History Surgical History History of orthopedic surgery Repair of left elbow and left wrist fractures. Family History Family History Mother Family history non-contributory Social History Social History Social History: Code status: Full code. Smoking status: Never smoker Additional smoking assessment comments: only smokes marijuana 5 times per month Alcohol intake: current Drinks per week: 10 Alcohol use details: 2-3 beers a few days per week while golfing. Substance use: current Substance use type: marijuana Last use: 09/06/22 Lack of Transportation: No Lack of Food: Never True Current Housing: I Have Housing Concerned About Future Housing: No Difficulty Paying Gas/Electric Bills: No Difficulty Paying for Meds: No Currently Unemployed: No Education: Don't Know Difficulty w/ Childcare or Family Care: No Living arrangements: alone Spiritual care concerns: No Exam Narrative: GENERAL: Well appearing, well-nourished, non-toxic, in no acute distress. HEAD: Normocephalic, atraumatic. NECK: Supple. No adenopathy, no masses. RESPIRATORY: Airway patent, respirations nonlabored. Clear to auscultation bilaterally, no rales, rhonchi, wheezing. CARDIOVASCULAR: Regular rate and rhythm without murmurs, rubs, or gallops. Radial pulses 2+ and equal bilaterally. ABDOMINAL: Soft, diffuse tenderness throughout lower abdomen, focal more severe tenderness in LLQ with guarding, nondistended, no hepatosplenomegaly. Normoactive BS. MUSCULOSKELETAL: Moves all extremities. Strength/ROM intact without gross deformities. SKIN: Warm, dry, normal color. No rashes. NEURO: A&O X3. Speech clear. Cranial nerves II-XII grossly intact. Steady gait. No ataxic movements. PSYCHIATRIC: Appropriate mood and affect. Normal interaction. Course Vital Signs Vital signs: Vital Signs Temperature 98.3 F 11/10/22 18:51 Pulse Rate 66 11/10/22 18:51 Respiratory Rate 11/10/22 18:51 Blood Pressure 134/91 H 11/10/22 18:51 Pulse Oximetry 99 11/10/22 18:51 Oxygen Delivery Room Air 11/10/22 18:51 Temperature 98.3 F 11/10/22 18:51 Pulse Rate 71 11/11/22 02:55 Respiratory Rate 11/11/22 02:55 B
[2022-11-11] MEDS: HYDROcodone/acetaminophen (*CRX) 5-325 MG TABLET 1 TAB PO (02:41)
[2022-11-11] MEDS: HYDROmorphone HCL INJ (*CRX) 1 MG/ML SYR 0.5 MG IV PUSH (02:42)
[2022-11-11] MEDS: PIPERACILLN/TAZ 3.375GM/NS50ML 3.375 GM/50 ML BAG IVPB (02:44)
[2022-11-11 02:55] VITALS: PULSE 71; RESP 18; O2SAT 98
[2022-11-11 03:03] VITALS: BP 114/82
== END 2022-11-11 03:04 | disposition home or self-care (01) ==
PROVIDERS: Emergency Medicine; Emergency Provider Physician Assistant
DX: K57.32 Diverticulitis of large intestine without perforation or abscess without bleeding (principal); K63.2 Fistula of intestine; K57.30 Diverticulosis of large intestine without perforation or abscess without bleeding; R93.6 Abnormal findings on diagnostic imaging of limbs; R93.3 Abnormal findings on diagnostic imaging of other parts of digestive tract
CPT/HCPCS: 36415; 74177; 80053; 81003; 83690; 85025; 96361; 96365; 96374; 96375; 99284; A9270; J1170; J2270; J2405; J2543; J7030; Q9967

== ENCOUNTER 2024-12-10 07:21 | Emergency (ER) | payer OTHER, SELFPAY ==
[2024-12-10 07:29] VITALS: BP 134/99; PULSE 90; RESP 18; TEMP 36.6; O2SAT 100
--- NOTE | 2024-12-10 07:36 | ED_ITS ---
HPI - General Adult General Chief complaint: Back Pain/Injury Stated complaint: lower back pain Time Seen by Provider: 12/10/24 07:26 History of Present Illness HPI narrative: 59-year-old male present to the emergency department for evaluation for lower back pain has been ongoing for the last few days. Patient states he was at work and was tossing we to his into a dumpster when he twisted his lower back. Patient does have pain and the right lower back that radiates to the right bu ttock. Patient states the pain does sometimes intermittently radiate down the leg but denies any associated numbness or weakness. Patient states he has had this happen before and was treated with medications at [place]. Patient denies any change in bowel or bladder habits. Related Data Allergies Allergy/AdvReac Type Severity Reaction Status Date / Time acetaminophen (From Allergy Mild Vomiting Verified 12/10/24 07:28 Darvocet-N 100) propoxyphene (From Allergy Mild Vomiting Verified 12/10/24 07:28 Darvocet-N 100) meperidine AdvReac Intermediate Vomiting Verified 12/10/24 07:28 Review of Systems Review of Systems: All systems reviewed & are unremarkable except as noted in HPI and below PMFSH Past Medical History Medical History Colitis Surgical History Surgical History History of orthopedic surgery Repair of left elbow and left wrist fractures. Family History Family History Mother Family history non-contributory Social History Social History Social History: Code status: Full code. Smoking status: Never smoker Additional smoking assessment comments: only smokes marijuana 5 times per month Alcohol intake: current Drinks per week: 10 Alcohol use details: 2-3 beers a few days per week while golfing. Substance use: current Substance use type: marijuana Last use: 09/06/22 Lack of Transportation: No Lack of Food: Never True Current Housing: I Have Housing Concerned About Future Housing: No Difficulty Paying Gas/Electric Bills: No Difficulty Paying for Meds: No Currently Unemployed: No Education: Don't Know Difficulty w/ Childcare or Family Care: No Living arrangements: alone Spiritual care concerns: No Exam Narrative: APPEARANCE: Well appearing, no pain, no distress, well-nourished. HEAD: normocephalic, atraumatic. EYES: PERRLA/EOMI, conjunctivae clear. NOSE: Normal no drainage EARS:TMS clear with good light reflex. THROAT: Pharynx clear, no exudate. NECK: Supple. No adenopathy, no masses. RESPIRATORY: Airway patent, respirations nonlabored. Clear to auscultation bilaterally, no rales, rhonchi, wheezing. CARDIOVASCULAR: Regular rate and rhythm without murmurs rubs or gallops. ABDOMINAL: Soft, nontender, nondistended, normal bowel sounds MUSCULOSKELETAL: lower back tenderness to palpation NEURO: Alert. Cranial nerves II through XII intact. Grossly intact SKIN: Warm, dry. Normal Color Course Vital Signs Vital signs: Vital Signs Temperature 97.9 F 12/10/24 07:29 Pulse Rate 90 12/10/24 07:29 Respiratory Rate 18 12/10/24 07:29 Blood Pressure 134/99 H 12/10/24 07:29 Pulse Oximetry 100 12/10/24 07:29 Oxygen Delivery Room Air 12/10/24 07:29 Temperature 98 F 12/10/24 08:06 Pulse Rate 67 12/10/24 08:06 Respiratory Rate 20 12/10/24 08:06 Blood Pressure 134/91 H 12/10/24 08:06 Pulse Oximetry 99 12/10/24 08:06 Oxygen Delivery Room Air 12/10/24 07:29 Medical Decision Making [facility] Narrative Medical decision making narrative: 59-year-old male present to the emergency department for evaluation of lower back pain. Patient's exam consistent with potential sciatica. No concern for cauda equina. Patient no numbness or weakness of the normal neuro exam. No step-offs palpated. Patient was provided medication for pain control emergency department patient will be discharged home with Medrol Dosepak Flexeril and [place]. Differential Diagnosis Differential Diagnosis: Back strain, sciatica, kidney stone, UTI Vital Signs Vital Signs: Vital Signs Temperature 97.9 F 12/10/24 07:29 Pulse Rate 90 12/10/24 07:29 Respiratory Rate 18 12/10/24 07:29 Blood Pressure 134/99 H 12/10/24 07:29 Pulse Oximetry 100 12/10/24 07:29 Oxygen Delivery Room Air 12/10/24 07:29 Temperature 98 F 12/10/24 08:06 Pulse Rate 67 12/10/24 08:06 Respiratory Rate 20 12/10/24 08:06 Blood Pressure 134/91 H 12/10/24 08:06 Pulse Oximetry 99 12/10/24 08:06 Oxygen Delivery Room Air 12/10/24 07:29 Discharge Plan Discharge Clinical Impression: Strain of lumbar region Patient Disposition: Home Condition: Stable Instructions: Antibiotic Form, Acute Low Back Pain (ED) Additional Instructions: Have close follow-up with your primary care physician. Medrol Dosepak as directed until completed. Ibuprofen for pain control as needed. Flexeril for muscle spasm. [place] as needed for additional pain control. If you have any wor sening symptoms then please call or return to the emergency department. Patient Language: [place] Prescriptions: New cyclobenzaprine 10 mg tablet 10 mg PO BID PRN (Reason: muscle spasm) Qty: 14 0RF hydrocodone-acetaminophen 5-325 mg tablet 1 tablet PO Q12H PRN (Reason: pain) Qty: 14 0RF methylprednisolone [Medrol (Thomas)] 4 mg tablets,dose pack See Rx Instructions .ROUTE .COMPLEX Qty: 21 0RF Rx Instructions: for 6 days No Action hydrocodone-acetaminophen 5-325 mg tablet 1 tablet PO Q6H PRN (Reason: pain) Qty: 15 0RF metronidazole 500 mg tablet 500 mg PO Q8H 10 Days Qty: 30 0RF ciprofloxacin HCl 500 mg tablet 500 mg PO Q12H 10 Days Qty: 20 0RF ondansetron 4 mg tablet,disintegrating 4 mg PO Q8H PRN (Reason: nausea and vomiting) Qty: 15 0RF Follow-up/Referrals: PHYSICIAN,SHIPPER/RECEIVER [Primary Care Provider, Internal Medicine]
[2024-12-10] MEDS: CYCLOBENZAPRINE HCL 10 MG TABLET PO (07:40)
[2024-12-10] MEDS: KETOROLAC 30 MG/ML VIAL (*BKC) IM (07:40)
[2024-12-10 08:06] VITALS: BP 134/91; PULSE 67; RESP 20; TEMP 36.6; O2SAT 99
== END 2024-12-10 08:09 | disposition home or self-care (01) ==
LOC: ANHED 07:57
PROVIDERS: Emergency Provider Emergency Medicine
DX: S39.012A Strain of muscle, fascia and tendon of lower back, initial encounter (principal); X50.3XXA Overexertion from repetitive movements, initial encounter
CPT/HCPCS: 96372; 99283; A9270; J1885